=== PATIENT | female | born 1955 | race Caucasian/White ===

== ENCOUNTER → 2020-12-28 01:48 | Outpatient (CLI) | payer OTHER, SELFPAY ==
[2020-12-28 18:55] LABS: SARS-CoV-2 RNA PCR Negative
== END ==
PROVIDERS: Visit Provider Orthopaedic Surgery
DX: Z01.812 Encounter for preprocedural laboratory examination (principal); Z20.822 Contact with and (suspected) exposure to COVID-19
CPT/HCPCS: C9803; U0003; U0005

== ENCOUNTER 2020-12-28 11:01 | Outpatient (CLI) | payer OTHER, SELFPAY ==
--- NOTE | 2020-12-28 11:10 | ECG_ITS ---
Measurements Intervals [place] Rate: 59 P: 130 [place]: 260 QRS: 12 QRSD: 97 T: 4 QT: 389 QTc: 388 Interpretive Statements ELECTRONIC ATRIAL PACEMAKER DELAYED PRECORDIAL R/S TRANSITION LOW QRS VOLTAGE IN PRECORDIAL LEADS BORDERLINE T WAVE ABNORMALITY- ANT/INF LEADS BORDERLINE ECG Electronically Signed On 12-28-2020 11:30:16 CDT by Horace John D.O.
[2020-12-28 11:36] LABS: Anion Gap -2 mmol/L (8-16); Blood Urea Nitrogen 14 mg/dL (7-17); Carbon Dioxide 36 mmol/L (22-30); Chloride 104 mmol/L (98-107); Estimated Glomerular Filt Rate > 60; Glucose 198 mg/dL (65-105); Potassium 4.5 mmol/L (3.4-5.0); Sodium 138 mmol/L (137-145)
== END 2020-12-28 11:02 | disposition home or self-care (01) ==
LOC: ANHSURGERY 11:04
PROVIDERS: Anesthesiology; Visit Provider Orthopaedic Surgery
DX: E11.9 Type 2 diabetes mellitus without complications (principal); I10 Essential (primary) hypertension; R94.31 Abnormal electrocardiogram [ECG] [EKG]; Z01.818 Encounter for other preprocedural examination
CPT/HCPCS: 36415; 80048; 93005

== ENCOUNTER 2020-12-31 05:58 | Day surgery (SDC) | payer OTHER, SELFPAY ==
[2020-12-23 14:42] VITALS: BMI 29.2
--- NOTE | 2020-12-30 12:48 | WPDANESEPPF ---
Anes - Initial Pre Proc Eval Procedure: Operation Date: 12/31/20 09:00 Proposed Procedures p Arthroscopic Left Partial Lateral Meniscectomy - Rudolph Munoz MD Date/Time: 12/30/20 12:48 Surgeon: Rudolph Munoz MD Pre Op Diagnosis: lateral meniscus tear left knee Patient Data Age: 65 Gender: F Height: 1.68 m Weight: 82 kg Allergies Allergy/AdvReac Type Severity Reaction Status Date / Time Sulfa (Sulfonamide Allergy Unknown Rash Verified 12/31/20 08:03 Antibiotics) NSAIDS (Non-Steroidal AdvReac Unknown AVOIDING Verified 12/31/20 08:03 Anti-Inflamma AFTER GASTRIC BYPASS simvastatin AdvReac Unknown LEG PAINS Verified 12/31/20 08:03 Home Medications Medication Instructions Recorded Confirmed Type garlic 300 mg PO DAILY 12/10/20 12/31/20 History insulin admin supplies #1 ea 12/10/20 12/31/20 History lisinopril 20 mg tablet 20 mg PO QAM 12/10/20 12/31/20 History multivitamin 1 tablet PO DAILY 12/10/20 12/31/20 History pyridostigmine bromide 60 mg tablet 60 mg PO TID 12/10/20 12/31/20 History aspirin [Aspir-81] 81 mg PO DAILY 12/23/20 12/31/20 History kipvszrbfa-msypertdwhtof-hunc 1 tablet PO Q4-5H PRN 12/23/20 12/31/20 History calcium carbonate [Tums Ultra] 800 mg PO DAILY 12/23/20 12/31/20 History cholecalciferol (vitamin D3) 3,000 mcg PO DAILY 12/23/20 12/31/20 History hydrochlorothiazide 25 mg PO QAM 12/23/20 12/31/20 History insulin aspart U-100 [Novolog 16 unit CONTINUOUS IV INFUSION 12/23/20 12/31/20 History U-100 Insulin aspart] USEASDIRECTD Patient hx anesthesia problems: none Family hx anesthesia problems: none PMFSH Past Medical History Medical History (Updated 12/31/20 @ 08:01 by Gabriel Tiwari DO) Diabetes insulin pump History of pacemaker Hypertension Myasthenia gravis Surgical History Surgical History (Updated 12/30/20 @ 12:48 by Gabriel Tiwari DO) History of appendectomy History of bilateral carpal tunnel release History of bilateral cataract extraction History of cardiac cath X3 History of cholecystectomy History of gastric bypass 2014 History of hip surgery Labral repair Rt Hip History of hysterectomy History of meniscectomy of right knee History of thymectomy Family History Family History (Updated 12/10/20 @ 12:21 by Nikia Quarles MA) Father Hypertension Diabetes mellitus Mother Thyroid disease Sinus complaint Social History Social History (Updated 12/10/20 @ 12:21 by Nikia Quarles MA) Smoking packs per day: 1 Smoking cigarettes per day: 20.0 Years smoked: 4 Smoking pack-years: 4.00 Smoking status: Former smoker Tobacco type: cigarettes Smoking end date: 02/17/78 Alcohol intake: never Substance use: never Living arrangements: with family Additional living arrangements comments: [place] Spiritual care concerns: No Anes - Eval Final PreProcedure Day of Procedure 12/30/20 12:48 Patient weight: overweight Heart: regular rate and rhythm Lungs: clear to auscultation and normal air movement Airway: Mallampati scale class II Neurological: alert and oriented Last oral intake: >/= 8 hours ASA classification: III Emergent: no Anesthetic plan: proceed Anesthesia type and monitoring: general LMA and standard monitoring Informed Consent: The patient's anesthetic plan and its attendant risks and benefits were discussed with the patient/family/POA. Questions were solicited and answers provided to the satisfaction of the patient/family/POA.
[2020-12-31] VITALS (7 sets, daily range): BP systolic 133–154; BP diastolic 80–92; PULSE 59–61; RESP 12–18; TEMP 36.2–36.6; O2SAT 98–100
--- NOTE | 2020-12-31 07:25 | WPDHPUPDATE1 ---
History and Physical Update Update Date/Time: 12/31/20 07:25 History and Physical has been reviewed, including an updated exam of the patient. There are NO changes in the patient's condition. Risks, benefits, and alternatives have been discussed and questions answered. Patient agrees to proceed with procedure.
[2020-12-31] MEDS: KETOROLAC 15 MG/ML VIAL (*BKC) IV PUSH (07:36)
[2020-12-31] MEDS: ACETAMINOPHEN 500 MG TABLET 1000 MG PO (07:36)
[2020-12-31] MEDS: LACTATED RINGERS 1,000 ML 30 ML IV CONT ×2 (07:37→10:10)
[2020-12-31 07:42] LABS: Glucose Point of Care 174 (65-105)
[2020-12-31] MEDS: ceFAZolin 2 GM/D5W 50 ML 2 GM/50 ML BAG IVPB (08:51)
[2020-12-31] MEDS: BUPIVACAINE/EPINEPHRINE 0.5% 30 ML VIAL 20 ML INFILTRATE (09:04)
[2020-12-31] MEDS: ONDANSETRON INJ 4 MG/2 ML VIAL IV PUSH (09:50)
[2020-12-31 13:29] LABS: Glucose Point of Care 154 (65-105)
--- NOTE | 2020-12-31 16:10 | PM.PROC ---
Procedure Note - Detailed Date of procedure: 12/31/20 Pre-op diagnosis: lateral meniscus tear left knee Post-op diagnosis: same Procedure performed: Arthroscopic partial lateral meniscectomy, left knee. Description of procedure: The lateral meniscus showed complex tearing at the lateral and posterior aspect. Partial meniscectomy was accomplished. Grade 1 and 2 chondromalacia of the femur and tibia was encountered both medially and laterally. Significant fairly deep fissuring on the tibia with probing. Grade 1 patellofemoral chondromalacia. Anterior cruciate ligament intact. Anesthesia: GETA Surgeon: Rudolph Munoz MD Brand Marketing Intern: Rosaura Caballero PA-C Estimated blood loss (mL): 5 Complications: None Condition: stable Findings: Brief History: The patient complained of knee pain, swelling and mechanical symptoms despite conservative treatment. MRI confirmed the presence of a meniscus tear. Procedure Details: The patient was identified and the surgical site confirmed and signed in the preoperative holding area. Antibiotics were started per protocol. She was brought to the operative room and transferred to the OR table. A general anesthetic was administered. Supine position with the operative lower extremity position in the leg diaz after placement of a well padded tourniquet. The leg support was lowered and the contralateral limb was supported with a soft bolster. The knee was prepped and draped in the usual sterile fashion. A time-out was performed. The portal sites were marked and infiltrated with 0.5% Marcaine 20 mL. The limb was exsanguinated and the tourniquet inflated to 300 mL Hg. Standard inferolateral and inferomedial portals were established. Inflow was obtained with the saline pump. The camera was introduced. Diagnostic inspection of the joint was accomplished. The meniscus was debrided with the arthroscopic shaver and punches until stable. The arthroscopic instruments were removed. The tourniquet released and wounds closed with subcutaneous 3-0 Monocryl absorbable suture. Steri strips and a sterile dressing were applied. A light elastic wrap was placed. The patient was extubated and brought to the recovery room in stable condition.
== END 2020-12-31 11:27 | disposition home or self-care (01) ==
PROVIDERS: Visit Provider Orthopaedic Surgery
PROC: (CPT 29870; principal; 2020-12-31 09:00)
DX: S83.272A Complex tear of lateral meniscus, current injury, left knee, initial encounter (principal); X58.XXXA Exposure to other specified factors, initial encounter; M94.262 Chondromalacia, left knee; E11.9 Type 2 diabetes mellitus without complications; I10 Essential (primary) hypertension; G70.00 Myasthenia gravis without (acute) exacerbation; Z96.41 Presence of insulin pump (external) (internal); Z79.4 Long term (current) use of insulin; Z79.82 Long term (current) use of aspirin; Z98.84 Bariatric surgery status; Z87.891 Personal history of nicotine dependence
CPT/HCPCS: 29881; 82948; A9270; J0690; J1885; J2250; J2405; J2704; J3010; J7120

== ENCOUNTER 2024-04-02 12:37 | Outpatient (CLI) | payer MEDICARE, SELFPAY ==
--- NOTE | ~2024-04-02 | XR_ITS ---
XR knee RT min 4V Ordering provider: Rudolph Munoz MD History: . M17.0 - Bilateral primary osteoarthritis of knee . Comparison: None. FINDINGS: BONES: No acute fracture or dislocation. JOINT SPACES: Normal. SOFT TISSUES: Normal. IMPRESSION: No acute osseous abnormality right knee. Reviewed, dictated and finalized at location A.
--- NOTE | ~2024-04-02 | XR_ITS ---
XR knee LT min 4V Ordering provider: Rudolph Munoz MD History: . M17.0 - Bilateral primary osteoarthritis of knee . Comparison: December 10, 2020 FINDINGS: BONES: No acute fracture or dislocation. JOINT SPACES: Normal. SOFT TISSUES: Normal. IMPRESSION: No acute osseous abnormality left knee. Reviewed, dictated and finalized at location A.
== END 2024-04-02 12:38 | disposition home or self-care (01) ==
LOC: ANHIMG 12:42
PROVIDERS: PCP Family Medicine; Visit Provider Orthopaedic Surgery
DX: M17.0 Bilateral primary osteoarthritis of knee (principal)
CPT/HCPCS: 73564

== ENCOUNTER 2024-04-25 11:30 | Outpatient (CLI) | payer MEDICARE, SELFPAY ==
--- NOTE | ~2024-04-25 | XR_ITS ---
AP view of the pelvis and AP and lateral views of the right hip Clinical history: Pain Findings: No acute fracture or dislocation is seen. Osseous alignment is anatomic. Bilateral hip and SI joint spaces are preserved. Stent present in the region of the left iliac vessels. Soft tissues ar e unremarkable. Impression: No significant abnormality is seen. Reviewed, dictated and finalized at location . Impression: No significant abnormality is seen.
== END 2024-04-25 11:31 | disposition home or self-care (01) ==
LOC: ANHIMG 11:34
PROVIDERS: PCP Family Medicine; Visit Provider Orthopaedic Surgery
DX: M25.551 Pain in right hip (principal)
CPT/HCPCS: 73502

== ENCOUNTER 2024-04-30 14:23 | Outpatient (CLI) | payer MEDICARE, SELFPAY ==
[2024-04-30 15:03] LABS: Hematocrit 32.8 % (37.0-47.0); Hemoglobin 10.7 g/dL (12.0-15.0)
[2024-04-30 15:16] LABS: Albumin Level 3.9 g/dL (3.5-5.1); Estimated Glomerular Filt Rate > 60; Glucose 109 mg/dL (65-110)
[2024-04-30 15:25] LABS: Hemoglobin A1C 7.8 % (<5.7)
== END 2024-04-30 14:24 | disposition home or self-care (01) ==
LOC: ANHLAB 14:27
PROVIDERS: PCP Family Medicine; Visit Provider Orthopaedic Surgery
DX: M17.0 Bilateral primary osteoarthritis of knee (principal); E11.9 Type 2 diabetes mellitus without complications
CPT/HCPCS: 36415; 82040; 82565; 82947; 83036; 85014; 85018

== ENCOUNTER 2024-05-30 11:43 | Outpatient (CLI) | payer MEDICARE, SELFPAY ==
[2024-05-30 14:01] LABS: Basophils Percent Auto 0.7 % (0.2-1.2); Eosinophils Absolute Auto 0.1 K/mm3 (0-0.3); Eosinophils Percent Auto 2.6 % (0-4.4); Hematocrit 37.5 % (37.0-47.0); Immature Granulocyte Absolute 0.01 K/mm3 (0.00-0.031); Immature Granulocyte Percent A 0.2 % (0-0.5); Lymphocytes Absolute Auto 1.41 K/mm3 (0.9-3.2); Lymphocytes Percent Auto 26.1 % (18.3-44.2); Mean Corpuscular Hemoglobin 27.5 pg (26-34); Mean Corpuscular Volume 85.8 fl (80-100); Mean Platelet Volume 10.5 fl (7.4-10.4); Monocytes Absolute Auto 0.4 K/mm3 (0.1-0.6); Neutrophils Absolute Auto 3.4 K/mm3 (1.3-6.7); Neutrophils Percent Auto 63.4 % (45.5-73.1); Platelet Count Result 308 k/mm3 (150-375); Red Blood Count 4.37 M/mm3 (4.2-5.4); Red Cell Distribution Width 15.1 % (11.5-14.5); White Blood Count 5.4 K/mm3 (4.5-10.0)
[2024-05-30 14:10] LABS: Urine Cotinine NEGATIVE
[2024-05-30 15:08] LABS: Anion Gap 5 mmol/L (4-12); Blood Urea Nitrogen 25 mg/dL (7-17); Calcium 9.6 mg/dL (8.4-10.2); Carbon Dioxide 33 mmol/L (22-30); Chloride 98 mmol/L (98-107); Estimated Glomerular Filt Rate > 60; Glucose 123 mg/dL (65-110); Potassium 3.8 mmol/L (3.4-5.0); Sodium 136 mmol/L (137-145)
[2024-05-30 15:22] LABS: MRSA (PCR) NOT DETECTED (NOT DETECTE)
== END 2024-05-30 11:44 | disposition home or self-care (01) ==
LOC: ANHSURGERY 11:48
PROVIDERS: Anesthesiology; PCP Family Medicine; Visit Provider Orthopaedic Surgery
DX: M17.12 Unilateral primary osteoarthritis, left knee (principal); E11.9 Type 2 diabetes mellitus without complications; Z01.818 Encounter for other preprocedural examination
CPT/HCPCS: 36415; 80048; 80307; 85025; 87641

== ENCOUNTER 2024-06-17 02:51 | Day surgery (SDC) | payer MEDICARE, SELFPAY ==
[2024-05-30 12:19] VITALS: BP 132/78; PULSE 60; RESP 16; TEMP 36.8; O2SAT 99; BMI 30.9
--- NOTE | 2024-05-30 12:48 | PC.NURSE ---
Report to the Outpatient Waiting Room, entrance under the green pavilion located off [facility], at time __10:30AM on date ___06/17/24____. Planned Procedure Time: ____12:30PM____.? Time changes happen often and if your time is changed the preop area will call you the afternoon before. - You and your visitor will be asked to self-screen and do not enter if you have any COVID symptoms. Please call surgeon if you need to reschedule. - A mask is optional within the hospital at this time. Patients may have clear liquids (water, carbonated beverages, clear teas, apple juice) until 3 hours prior to surgery with a maximum of 20 ounces. - No food from midnight until time of surgery and no smoking. Take only the following medications with a SIP of water on the morning of surgery: ____PYRIDOSTIGMINE DO NOT STOP ANY OF YOUR OTHER PRESCRIPTION MEDICATIONS PRIOR TO SURGERY EXCEPT THE FOLLOWING Medications to discontinue per physician ____HOLD ASPIRIN 7 DAYS PRE-OP PER DR MCPHERSON- LAST DOSE 06/09/24. HOLD ALL VITAMINS/SUPPLEMENTS 3 DAYS PRE-OP PER ANESTHESIA- LAST DOSE 06/13/24. Please no make-up, nail lebanese, hairspray, perfume, deodorant, or body powder the day of surgery.? No jewelry (including any body piercings) or valuables the day of surgery, leave them at home.? Please take a shower or bath the night before, or the morning of, surgery with an antibacterial soap.? Wear comfortable, loose fitting clothing.? Children are encouraged to wear pajamas. - Jewelry must be removed prior to entering the operating room.? Rings and piercings that are not removed may be cut off. - The hospital will not accept responsibility for valuables.? - Please leave all valuables, including medications, at home the day of surgery. If you are going home after surgery, a licensed driver starting gate must drive you home.? - NO public transportation without another adult if you receive anesthesia. - We recommend that an adult stay with you for 24 hours following discharge. - We also recommend that you do not drive, make important decision, drink alcoholic beverages, or take any drugs that were not prescribed by your health care provider for at least 24 hours after your discharge time. Follow any additional instructions given to you from your surgeon. Telephone instructions given to ____PATIENT and asked if any additional questions and then verbalized understanding. Patient advised to call surgeon office or pre surgery nurse liaison [phone] if any additional questions.
[2024-06-17] VITALS (9 sets, daily range): BP systolic 104–167; BP diastolic 72–91; PULSE 59–73; RESP 10–20; TEMP 36.4–36.6; O2SAT 96–100
--- NOTE | ~2024-06-17 | XR_ITS ---
EXAM: [id number] DATE: 06/17/2024 16:07 HISTORY: POST-OP, LEFT TKA . COMPARISON: 04/02/2024. FINDINGS: Decreased mineralization. Interval uncomplicated appearing left knee total arthroplasty. N o fracture or dislocation. No lytic or blastic lesion. No erosion or periosteal change. Gas and fluid within the joint space. IMPRESSION: Expected postsurgical changes, with no radiographic evidence of procedure or hardware rel ated complication. Reviewed, dictated and finalized at location K. IMPRESSION: Expected postsurgical changes, with no radiographic evidence of pro cedure or hardware related complication.
--- NOTE | 2024-06-17 07:13 | WPDHPUPDATE1 ---
History and Physical Update Update Date/Time: 06/17/24 07:13 History and Physical has been reviewed, including an updated exam of the patient. There are NO changes in the patient's condition. Risks, benefits, and alternatives have been discussed and questions answered. Patient agrees to proceed with procedure.
[2024-06-17 11:15] LABS: Glucose Point of Care 123 mg/dl (65-105)
[2024-06-17] MEDS: ACETAMINOPHEN 500 MG TABLET 1000 MG PO (11:30)
[2024-06-17] MEDS: TRANEXAMIC ACID 1,000MG/ISO100 1,000 MG/100 ML BAG 200 MG IVPB (11:30)
--- NOTE | 2024-06-17 13:01 | WPDANESEPPF ---
Anes - Initial Pre Proc Eval Procedure: Operation Date: 06/17/24 12:30 Proposed Procedures p Left Total Knee Arthroplasty - Rudolph Munoz MD Date/Time: 06/17/24 13:01 Surgeon: Rudolph Munoz MD Pre Op Diagnosis: primary OA left knee Patient Data Age: 68 Gender: F Height: 1.68 m Weight: 88.6 kg Last Vital Signs Temp 36.4 C 06/17/24 11:23 Pulse 59 L 06/17/24 11:23 Resp 16 06/17/24 11:23 BP 142/79 H 06/17/24 11:23 Pulse Ox 99 06/17/24 11:23 O2 Del Method Room Air 06/17/24 11:23 Allergies Allergy/AdvReac Type Severity Reaction Status Date / Time Sulfa (Sulfonamide Allergy Unknown Rash Verified 06/17/24 11:20 Antibiotics) NSAIDS (Non-Steroidal AdvReac Unknown AVOIDING Verified 06/17/24 11:20 Anti-Inflamma AFTER GASTRIC BYPASS simvastatin AdvReac Unknown LEG PAINS Verified 06/17/24 11:20 Home Medications Medication Instructions Recorded Confirmed Type insulin admin supplies (InPen (for #1 ea 12/10/20 05/30/24 History Novolog or Fiasp) subcutaneous) multivitamin 1 tablet PO DAILY 12/10/20 06/17/24 History pyridostigmine bromide 60 mg 60 mg PO TID 12/10/20 06/17/24 History tablet (Mestinon) aspirin 81 mg tablet,delayed 81 mg PO DAILY 12/23/20 06/17/24 History release yttknuybnb-peainsibszdnk-fbdvogyu 1 tablet PO Q4-5H PRN Headache 12/23/20 05/30/24 History 50 mg-325 mg-40 mg tablet cholecalciferol (vitamin D3) 25 3,000 mcg PO DAILY 12/23/20 06/17/24 History mcg (1,000 unit) capsule furosemide 20 mg tablet (Lasix) 20 mg PO 3XW PRN Edema 04/20/21 06/17/24 History hydrochlorothiazide 25 mg tablet 25 mg PO QAM 12/01/21 06/17/24 History insulin aspart U-100 100 unit/mL 40 - 60 unit continuous IV 12/01/21 05/30/24 History subcutaneous solution (Novolog infusion USEASDIRECTD U-100 Insulin aspart) acetaminophen 500 mg tablet 1,000 mg PO Q6H PRN Pain 11/30/22 05/30/24 History (Tylenol Extra Strength) ezetimibe 10 mg tablet (Zetia) 10 mg PO DAILY 11/30/22 06/17/24 History sennosides 8.6 mg-docusate sodium 1 - 2 tab-cap PO QAM 11/30/22 05/30/24 History 50 mg tablet (Senna-S) lisinopril 2.5 mg tablet 2.5 mg PO DAILY PRN Hypertension 04/02/24 05/30/24 History calcium carbonate (Tums Extra 300 mg PO QAM 05/30/24 05/30/24 History Strength Smoothies) ferrous sulfate 325 mg (65 mg 325 mg PO DAILY 05/30/24 06/17/24 History iron) capsule,extended release lisinopril 5 mg tablet 10 mg PO QAM 05/30/24 06/17/24 History aspirin 81 mg tablet,delayed 81 mg PO BID 14 days #28 tabs 06/17/24 Rx release oxycodone-acetaminophen 5 mg-325 1 - 2 tablet PO Q4-6H PRN pain 7 06/17/24 Rx mg tablet days #30 tabs prednisone 5 mg tablet 5 mg PO DAILY 3 weeks #21 tabs 06/17/24 Rx Laboratory Tests 06/17/24 06/17/24 11:05 11:09 POC Capillary Glucose 123 H mg/dl (65-105) Blood Type O Positive Antibody Screen Negative Patient hx anesthesia problems: none Family hx anesthesia problems: none Results Review: All pre-operative results and documents have been reviewed as part of the pre-operative evaluation. [facility]LY [facility] Past Medical History Medical History Diabetes insulin pump History of pacemaker Hypertension Myasthenia gravis Surgical History Surgical History History of appendectomy History of bilateral carpal tunnel release History of bilateral cataract extraction History of cardiac cath X3 History of cholecystectomy History of gastric bypass 2014 History of hip surgery Labral repair Rt Hip History of hysterectomy History of meniscectomy of right knee History of thymectomy Family History Family History Father Hypertension Diabetes mellitus Mother Thyroid disease Sinus complaint Social History Social History Smoking packs per day: 0.75 Smoking cigarettes per day: 15.0 Years smoked: 2.5 Smoking pack-years: 1.88 Smoking status: Former smoker Tobacco type: cigarettes Smoking end date: 02/17/78 Alcohol intake: never Substance use: never Lack of Transportation: No Lack of Food: Never True Current Housing: I Have Housing Concerned About Future Housing: No Difficulty Paying Gas/Electric Bills: No Difficulty Paying for Meds: No Currently Unemployed: No Education: Associate Degree Difficulty w/ Childcare or Family Care: No Living arrangements: with family Additional living arrangements comments: HUSB & GRANDDAUGHTER Spiritual care concerns: No Anes - Eval Final PreProcedure Day of Procedure 06/17/24 13:01 Patient weight: overweight Heart: regular rate and rhythm Lungs: clear to auscultation Airway: Mallampati scale class II Neurological: alert and oriented Last oral intake: >/= 8 hours ASA classification: III Emergent: no Anesthetic plan: proceed Anesthesia type and monitoring: general LMA and standard monitoring Results Review: All pre-operative results and documents have been reviewed as part of the pre-operative evaluation. Informed Consent: The patient's anesthetic plan and its attendant risks and benefits were discussed with the patient/family/POA. Questions were solicited and answers provided to the satisfaction of the patient/family/POA.
[2024-06-17] MEDS: ceFAZolin 2 GM/D5W 50 ML 2 GM/50 ML BAG IVPB (13:09)
[2024-06-17] MEDS: SODIUM CHLORIDE 0.9% IV 38.7 ML, MORPHINE SULFATE INJ (*CRX) 2 MG, ROPivacaine HCL 1% 2... INFILTRATE (13:36)
[2024-06-17] MEDS: TRANEXAMIC ACID 1,000 MG/10 ML AMPUL 1000 MG IV PUSH (15:03)
--- NOTE | 2024-06-17 15:30 | P.OP_ITS ---
Procedure Note - Detailed Date of Procedure 06/17/24 Pre-op Diagnosis Left knee degenerative arthritis. Post-op Diagnosis Same Procedure Performed Calipered, kinematically aligned total knee replacement left knee. Surgeon Rudolph Munoz MD Doorperson Rosaura Guevara PA-C Anesthesia General Findings According to the calipered kinematic alignment principles, the knee was balanced by the following verification checks incorporating 6 caliper measurements, using an insert goniometer to select the insert thickness, and adjusting the tibial resection following the kinematic alignment algorithm (see figure 160.10 published in [employer] Wilfred[facility] chapter on kinematic alignment total knee a rthroplasty.) The steps verified the femoral and tibial components were kinematically aligned coincident to the patient's pre arthritic joint lines, which closely restored the point hope ira tibial compartment forces and ligament laxities without ligament release. The [employer] Tiangua OnlineriKA knee, designed specifically for kinematic alignment, fit optimally. The record of verification checks were documented and scanned into the chart. Distal Femoral Resection: Distal Medial and Lateral 8 mm Target thickness of 8mm Unworn, 6mm Worn (No Cartilage). Posterior Femoral Resection: Posterior Medial 5 mm(cartilage worn), Posterior Lateral 7 mm. Target thickness of 7mm Unworn, 5mm Worn (No Cartilage). Description of Procedure General anesthesia was administered. A well-padded tourniquet was placed high on the thigh. The limb was prepped and draped in the usual sterile fashion. The limb was exsanguinated and the tourniquet inflated to 300 mmHg. A longitudinal incision was created over the midline of the knee. Sharp dissection was taken through subcutaneous tissues. Electrocautery was used for hemostasis. A trivector approach to the knee joint was performed. The ACL, anterior horns of the menisci, and fat pad were excised, and a subperiosteal dissection was carried along the posterior medial border of the tibia. The thickness of the point hope ira patella was measured with a caliper. The patella was resected using the oscillating saw. The best fitting anatomic patella button was selected. The fixation holes were drilled. When the patella and patella buttons combined thickness was thicker than the point hope ira patella, the patella was recut. Starting midway between the top of the notch in the anterior femoral cortex, I drilled a 9 mm diameter hole parallel to the anterior cortex to minimize flexion of the femoral component and promote patella tracking. I verified the existence of a 5-10 mm bone bridge between the posterior aspect of the hole and the anterior limit of the intercondylar notch. An intraosseous positioning robyn was inserted 10 cm into the femur perpendicular to the distal joint line and parallel to the anterior cortex. I used a distal femoral referencing guide that compensated 2 mm when the cartilage was worn on the distal medial femoral condyle, and 2 mm when the cartilage was worn on the distal lateral femoral condyle. The basis for setting the distal and posterior femoral resection guide is knowing that the varus and valgus grade II to IV Kellegren-Nick osteoarthritic knees have negligible bone wear at 0? and 90? and that the mean full-thickness cartilage wear approximates 2 mm. I measured the thickness of distal femoral resections with a caliper to +/- 0.5 mm. The thickness of each resection was adjusted to match the thickness of the respective condyle of the femoral component within 0.5 mm of target after compensating for cartilage wear and kerf. When the distal resection was 1-2 mm too thin, a recut guide was used to adjust the cut. When the distal resection was too thick, a 1 or 2 mm thick washer was fixed to the back of the 4-in-1 chamfer block to sotero a corrective gap between the femoral component and distal femur. I set posterior femoral referencing guide at 0? orientation to position the pin holes for the 4 in 1 chamfer block. The alesha wing measured the width of the distal femoral resection and selected the size of the 4 in 1 chamfer block and femoral component. The AP sizer confirmed the size. I measured the thickness of the posterior femoral resections with a caliper before making the anterior and chamfer cuts. I adjusted the thicknesses of each resection to match the thickness of the respective condyle of the femoral component within +/-0.5 mm after compensating for cartilage wear and curve. When a posterior resection femoral resection was 1-2 mm too thick or thin a corrective correction was made by shifting or rotating the 4 in 1 chamfer block as needed. The chamfer block was secured in the correct position with compression screws. The anterior and chamfer femoral resections were made. These caliper measurements and corrections verified that the femoral component was set coincident with the patient's pre-arthritic distal and posterior femoral joint lines. I removed all the medial and lateral femoral and tibial osteophytes to restore the pre arthritic length of the medial and lateral collateral ligaments. I alfreda AP lines along the major axis of the lateral tibial plateau in between the tibial spines which identified the flexion extension plane of the knee. A conventional extramedullary tibial resection guide was applied to the ankle. An alesha wing was placed medially in the saw slot. The varus valgus angle of the tibial resection guide was adjusted until the guide paralleled the proximal tibial articular surface after compensating for cartilage and bone wear. The slope of flexion extension angle of the tibial resection guide was adjusted until the alesha wing paralleled the slope of the medial tibia after compensating for wear. The AP axis of the tibial resection guide was adjusted parallel to the two lines. The proximal tibia was resected, partially releasing the insertion of the posterior cruciate ligament. The thickness of the medial and lateral lateral tibial condyle was measured at the base of the tibial spines. I visually verified the slope of the medial border of the resection was parallel to the patient's pre arthritic slope after compensating for cartilage and bone wear. I removed the remnants of the posterior horns of the menisci and posterior osteophytes and cauterized the inferior lateral genicular vessels. The Aquamantys bipolar device was also used to for additional hemostasis. When the knee had a preoperative flexion contracture of 20? or more I teased the capsule off the posterior femur with a curved 3 quarter-inch osteotome. I administered the posterior femoral periosteal injection by delivering 10 cc using a 20 gauge spinal needle at the most medial and 10 cc at the most lateral femoral spur surface which reduced the risk of injury to the posterior neurovascular structures. I followed 6 options in a decision tree to fine tune the varus valgus and posterior slope orientation of the tibial component to restore the patient's pre arthritic tibial joint line and limb alignment. First, I adjusted the varus- valgus orientation of the proximal tibia resection working in 1 degree to 2 degree increments until there was negligible medial and lateral lift off of the distal femoral and proximal tibial resection from the spacer block during a varus valgus laxity assessment in extension. I selected the largest anatomic shape trial tibial base plate that fit within the cortical boundary of the proximal tibial resection. The base plate was best fit parallel to the cortical boundary which set the Internal-external orientation of the anterior to posterior and medial to lateral positions. The best fit method set the AP axis of the tibial base plate and insert parallel to the flexion extension plane of the pre arthritic knee. I pinned the trial tibial base plate, prepared the cruciate slot, and fixed the base plate to the tibia with the cruciate stem. I inserted the trial femoral component. The knee was placed in full extension. Varus valgus laxity is of the knee with trial components were assessed. When asymmetric laxity was observed a 1-2 degree varus or valgus recut guide was used to fine tune the tibial resection until the laxity was 1 degree or less in full extension like the point hope ira knee. The following steps determined the optimal insert thickness within +/-1 mm. First I inserted an insert goniometer that matched the thickness of the spacer block. I reduced the patella and then with the knee in maximum extension, I verified the knee hyperextended a few degrees and had negligible varus valgus laxity, like the pre arthritic knee. He required a release of the posterior lateral capsule. Next, I measured the external tibial orientation which was the angle the insert goniometer intersected the sagittal line on the medial condyle of the femoral trial component. Then with the knee in 15-30 degrees flexion I verified a 3-4 mm gap in the lateral compartment and no gap in the medial compartment during a 2nd varus valgus laxity test. Next, I placed the knee in 90? of flexion and the foot resting on the operating table and measured the internal tibial orientation. I repeated the steps until I identified the insert thickness that provided the highest external tibia orientation in extension and the highest internal tibial orientation at 90? flexion without anterior lift-off of the insert from the tibial base plate. The insert with this thickness was implanted. I applied a posterior drawer test with the tibia distracted by gravity and verified no posterior subluxation of the tibia relative to the femur. The patella remained centered on the trochlea and tracked well throughout the entire arc of flexion and extension. I used pulse lavage to clean the bony surfaces of debris and dried bone. I cemented the tibial, femoral, and patellar components using 1 bag of methylmethacrylate with Gentamycin, then rechecked the stability at full extension, 15-30 degrees, and 90? flexion and verified presybeterian of the entire arc of motion of the knee. The circulating nurse confirmed the sponge and needle counts were correct. I used pulse lavage to rinse the joint and wound. The extensor mechanism was closed with interrupted #1 Vicryl suture and #1 running Stratafix suture. The subcutaneous layer was closed with interrupted #1 Vicryl suture followed by 2-0 Stratafix and 3-0 Stratafix. Steri-Strips placed on the skin. Silver im pregnated occlusive dressing applied to the wound. A light gauze wrap and Michael bandage were placed. The patient was transferred to the recovery room in stable condition. There were no complications. Implants Medacta GMK spheriKA Femoral component SpheriKA size 3+, tibial component size 3, vitamin-E flex insert, thickness 11mm, Anatomic patella implant size 2. Estimated Blood Loss 50 Drains No Pathology None sent Complications No immediate complications Condition Stable Disposition PACU [facility] Billing Surgery - Charge Forward: Surgery Billing
[2024-06-17] MEDS: LACTATED RINGERS 1,000 ML 30 ML IV CONT ×2 (15:43)
[2024-06-17 15:51] LABS: Glucose Point of Care 159 mg/dl (65-105)
--- NOTE | 2024-06-17 16:16 | SUR.PHASEI ---
1616: Simple mask removed.
[2024-06-17] MEDS: oxyCODONE HCL (*CRX) 5 MG TAB IR PO (16:54)
[2024-06-17] MEDS: ONDANSETRON INJ 4 MG/2 ML VIAL IV PUSH (16:54)
== END 2024-06-17 18:22 | disposition home or self-care (01) ==
PROVIDERS: PCP Family Medicine; Visit Provider Orthopaedic Surgery
PROC: (CPT 27447; principal; 2024-06-17 12:30)
DX: M17.12 Unilateral primary osteoarthritis, left knee (principal); M25.762 Osteophyte, left knee; I10 Essential (primary) hypertension; E11.9 Type 2 diabetes mellitus without complications; G70.00 Myasthenia gravis without (acute) exacerbation; Z79.4 Long term (current) use of insulin; Z79.82 Long term (current) use of aspirin; Z79.891 Long term (current) use of opiate analgesic; Z79.52 Long term (current) use of systemic steroids; Z98.890 Other specified postprocedural states; Z95.0 Presence of cardiac pacemaker; Z96.41 Presence of insulin pump (external) (internal); Z98.61 Coronary angioplasty status; Z90.49 Acquired absence of other specified parts of digestive tract; Z98.84 Bariatric surgery status; Z87.891 Personal history of nicotine dependence
CPT/HCPCS: 27447; 36415; 73560; 82948; 86850; 86900; 86901; 97110; 97161; 97165; C1776; A9270; C1713; J0171; J0690; J1100; J2003; J2250; J2270; J2405; J2704; J2795; J3010; J7030; J7120

== ENCOUNTER 2024-08-06 13:43 | Outpatient (CLI) | payer MEDICARE, SELFPAY ==
--- NOTE | ~2024-08-06 | XR_ITS ---
XR knee LT 3V Ordering provider: Rudolph Munoz MD History: . PRESENCE OF L KNEE JOINT; 7 wks post op . Comparison: None. FINDINGS: BONES: No acute fracture or dislocation. Bone island in the distal femur. JOINT SPACES: Total knee arthroplasty. SOFT TISSUES: Normal. IMPRESSION: No acute osseous abnormality left knee. Total knee arthroplasty. Reviewed, dictated and finalized at location A. HER FLESHER
== END 2024-08-06 13:44 | disposition home or self-care (01) ==
PROVIDERS: PCP Family Medicine; Visit Provider Orthopaedic Surgery
DX: Z96.652 Presence of left artificial knee joint (principal)
CPT/HCPCS: 73562

== ENCOUNTER 2025-02-18 13:29 | Outpatient (CLI) | payer MEDICARE, SELFPAY ==
--- OUTSIDE RECORDS SUMMARY | 2025-02-18 13:39 | XMS_ITS | Clinical Summary ---
Author Organization [facility] Address [address] [place] [address] Care Team Providers Care Bomb Squad Officer Name Role Phone Bry Denny MD Primary Care Provider [phone] Social History Tobacco Use Types Packs/Day Years Used Date Smoking Tobacco: Never Assessed Comments Unknown Sex and Gender Information Value Date Recorded Sex Assigned at Not on file Legal Sex Female 12:26 PM CDT Gender Identity Not on file Sexual Orientation Not on file Plan of Treatment Health Maintenance Due Date Last Done Comments Colorectal Cancer Screening Colonoscopy (10 Years) 1955 Hepatitis C 11/26/1975 Mammogram Screening 1997 Pneumococcal Vaccine: 50+ Years (1 of 1 - PCV) 11/26/2007 Zoster Vaccines (1 of 2) 11/26/2007 Dexa Scan (General) 2022 DTaP, Tdap and Td Vaccines ( 2 - Td or Tdap) 07/07/2023 07/07/2013, 02/10/1993 COVID-19 Vaccine (3 - 2023-2 5 season) 2024 09/11/2020, 08/21/2020 RSV Immunization or 60+ Years (1 - 1-dose 75+ series) 2032 Meningococcal B Vaccine Aged Out No l onger eligible based on patient's age to complete this topic Meningococcal Vaccine Aged Out No kandi concepcion eligible based on patient's age to complete this topic RSV Immunizations Under 20 Months Aged Out No longer eligible b ased on patient's age to complete this topic Medical Devices Implanted Type Area Ecotherapist Device Identifier Shelf Expiration Date Model / Serial / Lot Lead-03/25/2020 Implanted:Qty: 1 on 03/25/2020 by Evita Ordonez MD Lead Implant [employer] CARDIAC RHYTHM AND HEART FAILURE - [facility] M [id number] / / Lead-03/25/2020 Implanted:Qty: 1 on 03/25/2020 by Evita Ordonez MD Lead Implant [employer] CARDIAC RHYTHM AND HEART FAILURE - [facility] M [id number] / / Pacemaker- 020 Implanted:Qty: 1 on 03/25/2020 by Evita Ordonez MD Pacemaker Chest [employer] CARDIAC RHYTHM AND HEART FAILURE - [facility] [id number] / [id number] / Description:MRI Conditional under following conditions: Static magnetic field of 1.5 T or 3 T, Max spatial gradient field of 2000 Gauss/cm or less, Max slew rate 200 T/m/s, 1.5 T max whole body JASKARAN of 2 W/kg or less in Normal operating mode, Had JASKARAN 3.2 W/kg or less, 3T B1+JUDD must be 2.8 mT or less when isocenter is below C&, No 3T B1+JUDD restriction when isocenter at or above C7, Supine or Prone Insurance [employer] OPEN ACCESS [facility] Care Teams Bomb Squad Officer Relationship Specialty Start Date End Date Bry Denny MD PCP - General FAMILY PRACTICE 11/18/20
--- OUTSIDE RECORDS SUMMARY | 2025-02-18 13:39 | XMS_ITS | Clinical Summary ---
Author Organization [facility] Address [address] [place] [address] Care Team Providers Care Podiatrist Name Role Phone Bry Denny MD Primary Care Provider [phone] Source Comments [facility],non-owned Affiliates and Associated Physician Practices is amultiple site organization consisting of ambulatory clinics and hospital sitesin [place], [place], [place] and [place]. This disclosure is being madepursuant to the Care Everywhere program and may not contain all information available regarding this patient. Last updated 18.[facility] [employer] Allergies Active Allergy Reactions Criticality Noted Date Comments Nsaids 01/04/2015 GASTRIC BYPASS SURGERY. CANT TAKE ANYMORE Simvastatin Other Medium 02/11/2018 Muscle aches Sulfa Drugs Rash Low 11/10/2011 Topiramate Other Low 09/07/2020 Confusion; word-finding problems Medications * Be aware that medications may not be up to date on this document. Alwaysverify current medications with the patient. multivitamin daily (THERAGRAN) tabletIndicatio ns:taking gummies cant swallow pills Take 1 (one) tablet by mouth daily with food Reasons: taking gummies cant swallow pills Active vitamin D (CHOLECACIFEROL ) 5000 UNITS Take 3,000 Units by mouth once daily Active aspirin (ASPIRIN) 81 MG tablet Take 1 (one) tablet by mouth once daily Active insulin aspart (NOVOLOG) vial Use as directed with Insulin Pump - Max 60/day 02/12/2018 Active sennosides (Ex-Lax Maxium Strength) 25 MG tablet Take 1 (one) tablet by mouth as needed Active lisinopril (PRINIVIL;ZESTR IL) 5 MG tablet 4 (four) tablets 2 times daily 09/04/2020 Active BAQSIMI ONE PACK 3 MG/DOSE POWD 09/04/2020 Active acetaminophen (TYLENOL) 325 MG tablet Take 500 mg by mouth Active calcium carbonate (Tums) 500 MG chew tablet Take 2 (two) tablets by mouth daily with food Active furosemide (LASIX) 20 MG tablet Take 1 (one) tablet by mouth once daily 03/18/2021 Active diclofenac sodium (VOLTAREN) 1 % gel Apply 2 (two) g to affected area 4 times daily Active ezetimibe (Zetia) 10 MG tablet Take 1 (one) tablet by mouth once daily 08/15/2022 Active butalbital-acet aminophen-caffe ine (Fioricet) 50-325-40 MG tablet TAKE 1 TABLET BY MOUTH EVERY 4 HOURS NEEDED FOR HEADACHE OR MIGRAINE 30 tablet 03/26/2023 Active hydroCHLOROthia zide (Hydrodiuril) 25 MG tablet Take 1 (one) tablet by mouth once daily 06/16/2023 Active pyRIDostigmine (Mestinon) 60 MG tablet Take 1 (one) tablet by mouth 3 times daily 270 tablet 3 09/26/2023 Active Active Problems Problem Noted Date Diagnosed Date Myasthenia gravis status post thymectomy 020 Myasthenia gravis 09/02/2018 Chronic headaches 01/04/2015 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 Encounters Date Type Department Care Team Description 02/18/2025 8:42 AM CDT Hospital Encounter Infusion Services at [facility] [id number] [place] [address] Harjinder Reece MD 01/07/2025 9:00 AM CDT - 01/07/2025 11:59 PM CDT Hospital Encounter Infusion Services at [place] [address] [facility] [address] [place] [address] Harjinder Reece MD Discharge Disposition: Home or Self Care 01/07/2025 Orders Only [facility] [address] [place] [address] Harjinder Reece MD 01/05/2025 Orders Only [facility] [address] [facility] [address] [place] [address] Harjinder Reece MD 11/26/2024 9:00 AM CDT - 11/26/2024 11:59 PM CDT Hospital Encounter Infusion Services at [address] [place] [address] Harjinder Reece MD Discharge Disposition: Home or Self Care from Last 3 Months Social History Tobacco Use Types Packs/Day Years Used Date Smoking Tobacco: Former Cigarettes Q uit: 06/13/1970 Smokeless Tobacco: Never Tobacco Cessation:Counseling Given: Not Answered Alcohol Use Standard Drinks/Week Comments Yes 0 (1 standard drink = 0.6 oz pur e alcohol) very rarely PHQ-2 Answer Date Recorded Patient Health Questionnaire-2 Score 0 02/18/2025 Comments No Sex and Gender Information Value Date Recorded Sex Assigned at Not on file Legal Sex Female 11:57 AM 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 Gender Identity Not on file Sexual Orientation Not on file Last Filed Vital Signs Vital Sign Reading Time Taken Comments Blood Pressure 100/63 02/18/2025 10:36 AM CDT Pulse 60 02/18/2025 10:36 AM CDT Temperature 36.6 C (97.9 F) 02/18/2025 10:36 AM CDT Respiratory Rate 16 02/18/2025 10:36 AM CDT Oxygen Saturation 98% 02/18/2025 10:36 AM CDT Inhaled Oxygen Concentration - - Weight 87.1 kg (192 lb) 02/18/2025 8:53 AM CDT Height 170.2 cm (5' 7.01) 11/26/2024 9:04 AM CD T Body Mass Index 30.06 11/26/2024 9:04 AM CDT Plan of Treatment Upcoming Encounters Date Type Department Care Team (Late st Contact Info) Description 02/23/2025 10:20 AM CDT Office Visit [facility] [address] [phone] [place] [address] [phone] 04/01/2025 8:30 AM CDT Appointment Infusion Services at [facility] [address] [place] [address] [place] [address] [address] Health Maintenance Due Date Last Done Comments COLOGUARD (AGES 45-75) - COLON CA SCREENING 1955 CT COLONOGRAPHY - COLON CA SCREENING 1955 FLEX SIG - COLON CA SCREENING 1955 HEPATITIS C SCREENING 11/21/1975 DTAP/TDAP/TD VACCINES (1 - Tdap) 1976 PNEUMOCOCCAL VACCINE 50+ (1 of 1 - PCV) 11/26/2007 ZOSTER VACCINE (1 of 2) 11/26/2007 FIT - COLON CA SCREENING 06/14/2023 022, 04/26/2021, 04/19/2020, Additional history exists COVID-19 VACCINE ( - season) 2024 MEDICARE AWV CALENDAR YEAR 2024 INFLUENZA VACCINE (#1) 2025 , 05/22/2018, 05/24/2016, Additional history exists MAMMOGRAM 01/02/2027 01/02/2025, 12/18, 10/25/2023, Additional history exists SCREENING FOR DIABETES 02/03/2028 , 11/10/2024, 11/10/2024, Additional history exists LIPID TESTING 02/02/2030 02/02/2025, 10/19, 07/21/2024, Additional history exists Respiratory Syncytial Virus (RSV) Vaccine Pt: or over 60 yrs (1 - 1-dose 75+ series) 2032 COLON MONITORING 02/06/2034 02/07/2024, 12/26/2018 COLONOSCOPY - COLON CA SCREENING 02/06/2034 02/07/2024, 12/26/2018 Colorectal Cancer Screening 02/06/2034 BONE DENSITY TESTING Completed 07/27/2022 DEPRESSION SCREENING Completed 10/15/2024, 09/20/2023, 11/30/2022, Additional history exists HEPATITIS B VACCINE Aged Out No longe r eligible based on patient's age to complete this topic HIB VACCINE Aged Out No longer eligi ble based on patient's age to complete this topic HPV VACCINE Aged Out No longer eligi ble based on patient's age to complete this topic MENINGOCOCCAL (Group B) VACCINE SHARED DECISION-MAKING Aged Out No longer eligible based on patient's age to complete this topic MENINGOCOCCAL GROUPS A/C/Y/W VACCINE Aged Out No longer eligible based on patient's age to complete this topic Procedures Procedure Name Priority Date/Time Associated Diagnosis Comments COMPREHENSIVE METABOLIC PANEL Routine 07/24/2023 10:27 AM 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 OPERATOR Myasthenia gravis status post thymectomy from Last 3 Months or Most Recently Relevant to Health Maintenance Results * (ABNORMAL) COMPREHENSIVE METABOLIC PANEL (07/24/2023 10:27 AM 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 OPERATOR) Glucose 158(H) 65 - 99 mg/dL [facility] Comment: Fasting reference interval For someone without known diabetes, a glucose value >125 mg/dL indicates that they may have diabetes and this should be confirmed with a follow-up test. BUN 22 7 - 25 mg/dL [facility] Creatinine 0.73 0.50 - 1.05 mg/dL [facility] eGFR by Cystatin C 91 > OR = 60 mL/min/1. 73m2 [facility] BUN/Creatinine Ratio SEE NOTE: 6 - 22 (calc) [facility] Comment: Not Reported: BUN and Creatinine are within reference range. Sodium 138 135 - 146 mmol/L [facility] Potassium 3.7 3.5 - 5.3 mmol/L [facility] Chloride 100 98 - 110 mmol/L [facility] CO2 32 20 - 32 mmol/L [facility] Calcium 9.5 8.6 - 10.4 mg/dL [facility] Protein Total 7.0 6.1 - 8.1 g/dL [facility] Albumin 4.1 3.6 - 5.1 g/dL [facility] Globulin Total 2.9 1.9 - 3.7 g/dL (calc) [facility] Albumin/Globulin Ratio 1.4 1.0 - 2.5 (calc) [facility] Bilirubin Total 0.5 0.2 - 1.2 mg/dL [facility] Alkaline Phosphatase 89 37 - 153 U/L [facility] AST 30 10 - 35 U/L [facility] ALT 24 6 - 29 U/L [facility] Comment: Test Performed at: [facility] [address] [place] [address] JARROD GALLEGOS MD Blood BLOOD SPECIMEN / Unknown 07/24/2023 10:27 AM 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 OPERATOR 07/24/2023 10:27 AM 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 OPERATOR us Harjinder Reece MD LAB - CHEMISTRY ORDERABLES Final Result [facility] [id number] [place] [address] from Last 3 Months or Most Recently Relevant to Health Maintenance Insurance [employer] MEDICARE ADV [employer] * Guarantor: LORENZA MUNOZ Account Type Relation to Patient Date of Phone Billing Address Personal/Family 1955 [address] [place] [address] [employer] Advance Directives * Full Code (Latest Code Status on File) Date Activated Date Inactivated Comments 08/28/2019 12:32 PM 08/29/2019 12:13 PM Care Teams Podiatrist Relationship Specialty Start Date End Date Bry Denny MD [address] [place] [phone] PCP - General Family Medicine 11/20/17
--- OUTSIDE RECORDS SUMMARY | 2025-02-18 13:39 | XMS_ITS | Clinical Summary ---
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 recommends that at least two of three specimens collected within a 3-6 month period be abnormal before considering a patient to be within a diagnostic category. Urine 07/29/2024 1:28 PM FOAMING MACHINE OPERATOR 07/29/2024 1:28 PM FOAMING MACHINE OPERATOR Narrative [facility] - 07/30/2024 5:24 AM FOAMING MACHINE OPERATOR FASTING:YES FASTING: YES Andie Dorantes MD LAB URINE ORDERABLES Final Result Performing Organization Address City/[facility]/ZIP Co de Phone Number [facility] [address] [address] [phone] * Lipid panel (07/29/2024 1:28 PM FOAMING MACHINE OPERATOR) Cholesterol 157 <200 mg/dL [facility] HDL 78 > OR = 50 mg/dL [facility] Triglycerides 62 <150 mg/dL [facility] LDL 65 mg/dL (calc) [facility] Comment: Reference range: <100 Desirable range <100 mg/dL for primary prevention; <70 mg/dL for patients with CHD or diabetic patients with > or = 2 CHD risk factors. LDL-C is now calculated using the Juni-Matthews calculation, which is a validated novel method providing better accuracy than the Friedewald equation in the estimation of LDL-C. Juni SS et al. JOHNNY. 2013;310(19): 9520-0406 (http://education.Night Node Software.Kibin/faq/HUX194) Chol/HDL ratio 2.0 <5.0 (calc) [facility] Non-HDL, (LDL+VLDL) 79 <130 mg/dL (calc) [facility] Comment: For patients with diabetes plus 1 major ASCVD risk factor, treating to a non-HDL-C goal of <100 mg/dL (LDL-C of <70 mg/dL) is considered a therapeutic option. Blood 07/29/2024 1:28 PM FOAMING MACHINE OPERATOR 07/29/2024 1:28 PM FOAMING MACHINE OPERATOR Narrative [facility] - 07/30/2024 5:24 AM FOAMING MACHINE OPERATOR FASTING:YES FASTING: YES Andie Dorantes MD LAB BLOOD ORDERABLES Final Result Performing Organization Address City/[facility]/ZIP Co de Phone Number QUEST [facility] [address] [address] [phone] * (ABNORMAL) Comprehensive metabolic panel (07/29/2024 1:28 PM FOAMING MACHINE OPERATOR) Glucose 108(H) 65 - 99 mg/dL [facility] Comment: Fasting reference interval For someone without known diabetes, a glucose value between 100 and 125 mg/dL is consistent with prediabetes and should be confirmed with a follow-up test. BUN 21 7 - 25 mg/dL [facility] Creatinine 0.62 0.50 - 1.05 mg/dL [facility] eGFR 98 > OR = 60 mL/min/1.7 3m2 [facility] BUN/creat ratio SEE NOTE: 6 - 22 (calc) [facility] Comment: Not Reported: BUN and Creatinine are within reference range. Sodium 138 135 - 146 mmol/L [facility] Potassium, pl 3.4(L) 3.5 - 5.3 mmol/L [facility] Chloride 98 98 - 110 mmol/L [facility] CO2 33(H) 20 - 32 mmol/L [facility] Calcium 9.6 8.6 - 10.4 mg/dL [facility] Protein, sr 7.7 6.1 - 8.1 g/dL [facility] Albumin 4.1 3.6 - 5.1 g/dL [facility] GLOBULIN 3.6 1.9 - 3.7 g/dL (calc) [facility] Alb/glob ratio 1.1 1.0 - 2.5 (calc) [facility] Bilirubin, total 0.6 0.2 - 1.2 mg/dL [facility] Alk phos 96 37 - 153 U/L [facility] AST 22 10 - 35 U/L [facility] ALT (SGPT) 13 6 - 29 U/L [facility] Blood 07/29/2024 1:28 PM FOAMING MACHINE OPERATOR 07/29/2024 1:28 PM FOAMING MACHINE OPERATOR Narrative [facility] - 07/30/2024 5:24 AM FOAMING MACHINE OPERATOR FASTING:YES FASTING: YES us Andie Dorantes MD LAB BLOOD ORDERABLES Final Result [facility] [address] [address] [phone] * Colonoscopy (02/07/2024 9:19 AM CDT) Anatomical Region Laterality Modality Other Narrative Procedure Note Andrey Arango MD - 02/07/2024 9:19 AM CDT ENDOSCOPY LAB Patient Name: Keerthi Munoz Procedure Date: 02/07/2024 9:19 AM Date of : 1955 Admit Type: Outpatient Age: 68 Gender: Female Attending MD: Melly Arango M.D. Room: [facility] ENDOSCOPY ROOM 03 Note Status: Finalized Procedure: Colonoscopy Indications: surveillance: Personal history of colonic polyps,Last colonoscopy: December 2018 Providers: Melly Arango M.D. Referring MD: Bry Denny MD Medicines: Monitored Anesthesia Care Complications: No immediate complications. Estimated Blood Loss: Estimated blood loss was minimal. Procedure: Pre-Anesthesia Assessment: - Immediately prior to administration ofmedications, the patient was re-assessed for adequacy to receive sedatives. The benefits, risks and alternatives of theprocedure and sedation were discussed and informed consentwas obtained. All questions were answered. Please referto the signed informed consent document in the medical record. The scope was passed under direct vision.The [id number] was introduced through the anusand advanced to the cecum, identified by appendiceal orifice and ileocecal valve. The colonoscopy was performed without difficulty. The patient tolerated the procedure well. The quality of the bowel preparation was good. The quality of the bowel preparation was evaluated using the BBPS (BostonBowel Preparation Scale) with scores of: Right Colon = 3, Transverse Colon = 3 and Left Colon = 3 (entiremucosa seen well with no residual staining, smallfragments of stool or opaque liquid). The total BBPS score equals 9. Bowel prep was administered using a split dose. Findings: A 3 mm polyp was found in the sigmoid colon. The polyp was sessile.The polyp was removed with a cold biopsy forceps. Resection and retrieval were complete. Non-bleeding internal hemorrhoids were found during retroflexion. The hemorrhoids were small. The exam was otherwise without abnormality. Impression: - One 3 mm polyp in the sigmoid colon, removed witha cold biopsy forceps. Resected and retrieved. - Non-bleeding internal hemorrhoids. - The examination was otherwise normal. Recommendation: - Await pathology results. Repeat colonoscopy in7-10 years for surveillance, since she had no polyps 5 years ago, and only single tiny polyp this time. Electronically signed by Melly Arango MD Melly Arango M.D. 02/07/2024 9:54:43 AM Number of Addenda: 0 Note Initiated On: 02/07/2024 9:19 AM us Andrey Arango MD ENDOSCOPY PROCEDURES Final Result * Dexa Axial Skeleton Bone Density 1 or 2 Site (07/27/2022 10:09 AM FOAMING MACHINE OPERATOR) Anatomical Region Laterality Modality Body N/A Other 07/27/2022 8:33 PM FOAMING MACHINE OPERATOR Narrative 07/27/2022 8:34 PM FOAMING MACHINE OPERATOR EXAM DESCRIPTION: DEXA AXIAL SKELETON BONE DENSITY 1 OR MORE SITES REASON FOR STUDY: 66 y/o year old F with given history of screening. 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 FINDINGS: AP LUMBAR SPINE L1-L4: Total BMD is 1.161 g/cm2 T-score is 1.0 LEFT HIP: Total BMD is 1.038 g/cm2 T-score is 0.8 Femoral neck BMD is 0.809 g/cm2 T-score is -0.4 FRAX: FRAX not reported due to T-scores of hip, femoral neck and/or spine being at or above -1.0 (Normal). IMPRESSION: Based on the left femoral neck bone mineral density (T-score -0.4 ) the patient has normal bone mass . REFERENCE: Bone mineral density: Normal (T-score above or = -1.0) Low bone mass (T-score between -1.0 and -2.5) replaces the previously used term osteopenia Osteoporosis (T-score = or below -2.5) Medical evaluation for secondary causes of low bone mineral density may be appropriate. FRAX is a World Health Organization validated fracture risk assessment tool that calculates a person's 10 year probability of a major osteoporosis related fracture and hip fracture. According to the National Osteoporosis Foundation guidelines, postmenopausal women and men age 50 or older with low bone mass and a 10 year probability of a major osteoporosis related fracture = or greater than 20% or a 10 year probability of a hip fracture = or greater than 3% should be considered for treatment. For further information, including treatment recommendations, please refer to the 2013 ISCD Official Positions (http://www.iscd.org) and the NOF's Clinician's Guide to Prevention and Treatment of Osteoporosis (http://www.nof.org/professionals/clinical-guidelines) THIS IS AN ELECTRONICALLY VERIFIED FINAL REPORT 07/27/2022 8:34 PM - Electronically signed by Danilo Winston M.D. MF: [id number] Report ID: [id number] Reading Location: [address] Note Danilo Winston MD - 07/27/2022 EXAM DESCRIPTION: DEXA AXIAL SKELETON BONE DENSITY 1 OR MORE SITES REASON FOR STUDY: 66 y/o year old F with given history ofscreening. 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 FINDINGS: AP LUMBAR SPINE L1-L4: Total BMD is 1.161 g/cm2 T-score is 1.0 LEFT HIP: Total BMD is 1.038 g/cm2 T-score is 0.8 Femoral neck BMD is 0.809 g/cm2 T-score is -0.4 FRAX: FRAX not reported due to T-scores of hip, femoral neck and/or spine beingat or above -1.0 (Normal). IMPRESSION: Based on the left femoral neck bone mineral density (T-score -0.4 )the patient has normal bone mass . REFERENCE: Bone mineral density: Normal (T-score above or = -1.0) Low bone mass (T-score between -1.0 and -2.5) replaces thepreviously used term osteopenia Osteoporosis (T-score = or below -2.5) Medical evaluation for secondary causes of low bone mineral density may be appropriate. FRAX is a World Health Organization validated fracture risk assessmenttool that calculates a person's 10 year probability of a major osteoporosisrelated fracture and hip fracture. According to the National OsteoporosisFoundation guidelines, postmenopausal women and men age 50 or older with low bonemass and a 10 year probability of a major osteoporosis related fracture = or greater than 20% or a 10 year probability of a hip fracture = or greaterthan 3% should be considered for treatment. For further information, including treatment recommendations, please referto the 2013 ISCD Official Positions (http://www.iscd.org) and the NOF's Clinician's Guide to Prevention and Treatment of Osteoporosis (http://www.nof.org/professionals/clinical-guidelines) THIS IS AN ELECTRONICALLY VERIFIED FINAL REPORT 07/27/2022 8:34 PM - Electronically signed by Danilo Winston M.D. MF: [id number] Report ID: [id number] Reading Location: [place] [address] Louise Wu INCIDENT RESPONSE COORDINATOR IMG DXA PROCEDURES Final Result * Diabetic Eye Exam (05/03/2020) Historical Provider HEALTH MAINTENANCE Final Result * DIABETES FOOT EXAM (01/30/2017) Diabetic Foot Exam Normal Comment:Dryness noted b/l Historical Provider HEALTH MAINTENANCE Final Result from Last 3 Months or Most Recently Relevant to Health Maintenance Insurance [employer] [facility] [id number] [employer] MEDICARE [facility] Advance Directives For more information, please contact: [phone] * Full Code (Latest Code Status on File) Date Activated Date Inactivated Comments 02/07/2024 7:40 AM 02/07/2024 2:39 PM * Full Code Date Activated Date Inactivated Comments 12/26/2018 7:10 AM 12/26/2018 1:49 PM Care Teams Videographer Relationship Specialty Start Date End Date Bry Denny MD PCP - General 10/26/17 Cherri Boston, INCIDENT RESPONSE COORDINATOR [address] [place] [address] DR [address] [place] [address] Nurse Practitioner Obstetrics and Gynecology 10/25/23
--- OUTSIDE RECORDS SUMMARY | 2025-02-18 13:39 | XMS_ITS | Clinical Summary ---
Author Organization [facility] Address [address] [place] [address] Phone Care Team Providers Care Qualitative Field Coordinator Name Role Phone Addison Aleman MD Unavailable [phone] Bry Denny MD Primary Care Provider Allergies Active Allergy Reactions Criticality Noted Date Comments Nsaids Unknown 07/05/2016 Gastric Bypass Simvastatin Other (see Comments) 08/08/2019 leg pain Sulfa Antibiotics Rash Medium 07/05/2016 Medications lisinopril (PRINIVIL, ZESTRIL) 5 MG Tablet Take 20 mg by mouth daily. 6 Active vitamin b-12 (CYANOCOBALAMIN ) 250 MCG Tablet Take 1,000 mcg by mouth daily. Active Vitamins/Minera ls Tablet Take 1 Tab by mouth daily. Active Cholecalciferol (VITAMIN D3) 5000 units Capsule Take 5,000 Units by mouth daily. Active hydroCHLOROthia zide 25 MG Tablet Take 25 mg by mouth daily. Active Insulin Infusion Pump (MINIMKuailexue 670G INSULIN PUMP) Device by Does not apply route. Active Aspirin 81 MG Tablet Take 81 mg by mouth daily. Active pyridostigmine (MESTINON) 60 MG Tablet Take 60 mg by mouth 3 times daily. Active Topiramate (TOPAMAX) 50 MG Tablet Take 150 mg by mouth nightly. Active GARLIC PO Take by mouth. Activ e Insulin Aspart (NOVOLOG SC) by Subcutaneous route. Per pump Active oxyCODONE-aceta minophen (PERCOCET) 5-325 MG Tablet Take 1-2 Tabs by mouth every 4 hours as needed for Moderate or more severe pain. 30 Tab 9 Active Active Problems Problem Noted Date Diagnosed Date Acute cholecystitis 07/26/2019 Type 2 diabetes mellitus wit hout complication, with long-term current use of insulin 07/26/2019 Myasthenia gravis in remission 07/26/2019 Persistent adjustment disord er with mixed anxiety and depressed mood 12/20/2018 High anion gap metabolic acidosis 07/01/2017 Diabetic ketoacidosis withou t coma associated with type 2 diabetes mellitus 06/30/2017 Benign essential HTN 06/30/2017 Leukocytosis 06/30/2017 MARISELA (acute kidney injury) 06/30/2017 Pilonidal cyst with abscess 07/07/2016 Resolved Problems Problem Noted Date Diagnosed Date Resolved Date Chest pain 07/26/2019 07/26/2019 Myasthenia gravis 06/30/2017 07/26/2019 Immunizations Immunization Administration Dates Next Due Influenza Vaccine greater than 3 yrs 05/24/2016 Family History Medical History Relation Name Comments Diabetes Father Heart Attack Father Hypertension Father Cancer Mother thyroid Hypertension Mother Relation Name Status Comments Father Mother Social History Tobacco Use Types Packs/Day Years Used Date Smoking Tobacco: Former Cigarettes Q uit: 08/20/1977 Smokeless Tobacco: Never Alcohol Use Standard Drinks/Week Comments Yes 0 (1 standard drink = 0.6 oz pur e alcohol) Socially not even weekly Sexually Active Control Partners Comments Yes None Male Comments No Sex and Gender Information Value Date Recorded Sex Assigned at Not on file Legal Sex Female 12:22 AM CDT Gender Identity Not on file Sexual Orientation Not on file Last Filed Vital Signs Vital Sign Reading Time Taken Comments Blood Pressure 113/94 08/08/2019 4:06 PM [employer] Pulse 61 08/08/2019 6:15 PM [employer] Temperature 36.4 C (97.5 F) 08/08/2019 4:06 PM [employer] Respiratory Rate 16 08/08/2019 4:06 PM [employer] Oxygen Saturation 99% 08/08/2019 6:15 PM [employer] Inhaled Oxygen Concentration - - Weight 83.9 kg (185 lb) 08/08/2019 4:06 PM [employer] Height 170.2 cm (5' 7) 08/08/2019 4:06 PM [employer] Body Mass Index 28.98 08/08/2019 4:06 PM [employer] Plan of Treatment Health Maintenance Due Date Last Done Comments Diabetes: Eye Exam 1955 Diabetes: Foot Exam 1955 Hepatitis C Virus (HCV) Screening 1955 TdaP Immunization 1955 Pneumococcal Immunization (50+ years) (1 of 2 - PCV) 1976 Cologuard 2002 Colonoscopy 2002 Colorectal Cancer Screening 2002 Immunochemical Fecal Occult Blood 2002 Zoster Immunization (1 of 2) 11/26/2007 Respiratory Syncytial Virus (RSV) Immunization (Adult) (1 - Risk 60-74 years 1-dose series) 2017 Diabetes: Hemoglobin A1c 01/25/2020 019, 07/10/2019, 11/28/2018, Additional history exists Diabetes: Nephropathy Screening 08/08/2020 08/08/2019, 07/26/2019, 07/04/2017, Additional history exists SARS-COV-2 Immunization ( season) 2024 11/24/2021, 09/11/2020, 08/21/2020 Influenza Immunization (Season Ended) 2025 05/22/2018, 05/24/2016 Hepatitis B Immunization Aged Out No longer eligible based on patient's age to complete this topic Human Papillomavirus (HPV) Immunization Aged Out No longer eligible based on patient's age to complete this topic Meningococcal Immunization (ACWY) Aged Out No longer eligible based on patient's age to complete this topic Rotavirus Immunization Aged Out No lo nger eligible based on patient's age to complete this topic Procedures Procedure Name Priority Date/Time Associated Diagnosis Comments CMP (COMPREHENSIVE METABOLIC PANEL) STAT 08/08/2019 4:18 PM [employer] HEMOGLOBIN A1C W/ ESTIMATED GLUCOSE Routine 07/26/2019 5:50 AM [employer] from Last 3 Months or Most Recently Relevant to Health Maintenance Results * (ABNORMAL) CMP (Comprehensive Metabolic Panel) (08/08/2019 4:18 PM [employer]) SODIUM 135(L) 136 - 144 mmol/L 08/08/2019 4:54 PM [employer] [facility] POTASSIUM 3.5 3.5 - 5.1 mmol/L 08/08/2019 4:54 PM [facility] CHLORIDE 96(L) 100 - 110 mmol/L 08/08/2019 4:54 PM [facility] CO2, VENOUS 27 22 - 32 mmol/L 08/08/2019 4:54 PM [facility] ANION GAP 15.5 8.0 - 20.0 mmol/L 08/08/2019 4:54 PM [facility] GLUCOSE 167(H) 70 - 99 mg/dL 08/08/2019 4:54 PM [facility] BUN 34(H) 8 - 23 mg/dL 08/08/2019 4:54 PM [facility] CREATININE, BLOOD 0.87 0.60 - 1.10 mg/dL 08/08/2019 4:54 PM [facility] BUN/CREATININE RATIO 39(H) 12 - 20 ratio 08/08/2019 4:54 PM [facility] TOTAL PROTEIN 9.3(H) 6.0 - 8.3 g/dL 08/08/2019 4:54 PM [facility] ALBUMIN 3.8 3.5 - 5.2 g/dL 08/08/2019 4:54 PM [facility] Comment: The colormetric methods used for the determination of Albumin may lead to falsely elevated test results in patients suffering from renal failure or insufficiency due to interference with other proteins. A/G RATIO 0.7(L) 1.0 - 2.0 08/08/2019 4:54 PM [facility] CALCIUM 9.6 8.9 - 10.3 mg/dL 08/08/2019 4:54 PM [facility] T BILI 0.3 <=1.2 mg/dL 08/08/2019 4:54 PM [facility] SGOT (AST) 23 <=32 U/L 08/08/2019 4:54 PM [facility] SGPT (ALT) 24 <=33 U/L 08/08/2019 4:54 PM [facility] ALKALINE PHOSPHATASE 147(H) 35 - 105 U/L 08/08/2019 4:54 PM [employer] [facility] GFR, EST. NONAFRICAN >60 >=60 08/08/2019 4:54 PM [employer] [facility] GFR, EST. >60 >=60 019 4:54 PM [employer] [facility] Comment: Creatinine Clearance is the preferred criteria for selecting drug dose adjustments in renally impaired patients. The GFR is provided as additional pertinent clinical information. GFR is reported in mL/min/1.73 sq m. Blood specimen (specimen) Venous Catheter (IV) / Unknown 08/08/2019 4:18 PM [employer] [facility] 08/08/2019 4:31 PM [employer] [facility] Wisam Santiago MD CHEMISTRY ORDERABLES Final Resu lt Performing Organization Address [facility] Co de Phone Number [facility] [place] [address] * (ABNORMAL) Hemoglobin A1C (07/26/2019 5:50 AM [employer]) HGB-A1C 7.4(H) 4.0 - 6.0 % 07/26/2019 6:47 AM [employer] [facility] Est Average Glucose 165.7 mg/dL 07/26/2019 6:47 AM [employer] [facility] Blood specimen (specimen) Butterfly Puncture / Unknown 07/26/2019 5:50 AM [employer] 07/26/2019 6:01 AM [employer] Narrative [facility] - 07/26/2019 6:47 AM [employer] HEMOGLOBIN A1C: DIABETIC PATIENTS: WELL-CONTROLLED: 6.2 - 7.0 INTERMEDIATE WELL-CONTROLLED: 7.0 - 9.0 POORLY-CONTROLLED: >9.0 us Amira Mccormick APRN, COMMUNITY ENGAGEMENT LEADER CHEMISTRY ORDERABLE S Final Result Performing Organization Address [facility]/ZIP Co de Phone Number [facility] [place] [address] from Last 3 Months or Most Recently Relevant to Health Maintenance Insurance [address] GENER[employer] Advance Directives Documents on File Type Date Recorded Patient Refrigerator Repair Technician Expl anation Advance Care Planning Discussion 02/26/2018 3:18 PM ACP DISCUSSION RECOR D Advance Care Planning Discussion 02/26/2018 3:18 PM ACP COVER SHEET Advance Care Planning Discussion 02/26/2018 3:18 PM POA-HC * Full Code (Latest Code Status on File) Date Activated Date Inactivated Comments 07/26/2019 12:48 AM 07/27/2019 5:59 PM CPR-Full Tr eatment: FULL ARREST: Attempt Resuscitation/CPR wit intubation and mechanical ventilation. PRE-ARREST: Use entire range of life support measures to stabilize the patient. * Full Code Date Activated Date Inactivated Comments 06/30/2017 7:06 PM 07/04/2017 5:42 PM CPR-Full T reatment: FULL ARREST: Attempt Resuscitation/CPR wit intubation and mechanical ventilation. PRE-ARREST: Use entire range of life support measures to stabilize the patient. Care Teams Qualitative Field Coordinator Relationship Specialty Start Date End Date Bry Denny MD [address] [place] [id number] PCP - General Family Medicine 11/14/18 Addison Aleman MD General Surgery 06/29/16
--- OUTSIDE RECORDS SUMMARY | 2025-02-18 13:39 | XMS_ITS | Encounter Summary ---
Author Organization [facility] Address [address] [place] [address] Care Team Providers Care Stacking Machine Operator Name Role Phone Bry Denny MD Primary Care Provider [phone] Cherri Boston DATA PROCESSING OPERATOR Unavailable [phone] Encounter Details Date Type Department Care Team (Late st Contact Info) Description 01/11/2025 Results Follow-Up [facility] [address] [place] [address] Ja Quintana MD [address] [place] [address] [address] [place] [address] Screening Mammogram Bilateral W Benedict Social History Tobacco Use Types Packs/Day Years Used Date Smoking Tobacco: Former Cigarettes Q uit: 1978 Passive Smoke Exposure: Past Smokeless Tobacco: Never Alcohol Use Standard Drinks/Week [...] on file Legal Sex Female 11:13 PM HEAD OF TRANSPORT LOGISTICS Gender Identity Not on file Sexual Orientation Not on file documented as of this encounter Plan of Treatment Not on file documented as of this encounter Visit Diagnoses Not on filedocumented in this encounter Care Teams Stacking Machine Operator Relationship Specialty Start Date End Date Bry Denny MD PCP - General 10/26/17 Cherri Boston NP [address] [place] [address] DR [place] [place] [id number] Nurse Practitioner Obstetrics and Gynecology 10/25/23 documented as of this encounter
--- OUTSIDE RECORDS SUMMARY | 2025-02-18 13:39 | XMS_ITS | Encounter Summary ---
Author Organization [facility] Address [address] [facility] [place] [address] Care Team Providers Care Generator Worker Name Role Phone Bry Denny MD Primary Care Provider [phone] Reason for Visit * Oncology Prior Authorization (Routine) - Authorized Specialty Diagnoses / Procedures Referred By Landen george Referred To Contact Diagnoses Ocular myasthenia gravis (HCC) Procedures TX INJ IG GAMUNEX IV NONLYO 500 [place] [id number] [place] [phone] Phone: tel: fax: [place]jinder Reece MD [id number] [place] [phone] Phone: tel: fax: Referral ID Status Reason Start Date Expiration Date V isits Requested Visits Authorized [id number] Authorized 01/05/2025 07/08/2025 9 9 Encounter Details Date Type Department Care Team (Late st Contact Info) Description 02/18/2025 8:42 AM CDT Hospital Encounter Infusion Services at [facility] [address] [facility] [address] [place] [address] [place] [address] [facility] [address] [place] [phone] Social History Tobacco Use Types Packs/Day Years Used Date Smoking Tobacco: Former Cigarettes Q uit: 06/13/1970 Smokeless Tobacco: Never Alcohol Use Standard Drinks/Week Comments Yes 0 (1 standard drink = 0.6 oz pur e alcohol) very rarely PHQ-2 Answer Date Recorded Patient Health Questionnaire-2 Score 0 02/18/2025 Comments No Sex and Gender Information Value Date Recorded Sex Assigned at Not on file Legal Sex Female 11:57 AM DIRECTOR INDUSTRIAL MUSEUM Gender Identity Not on file Sexual Orientation Not on file documented as of this encounter Last Filed Vital Signs Vital Sign Reading Time Taken Comments Blood Pressure 100/63 02/18/2025 10:36 AM CDT Pulse 60 02/18/2025 10:36 AM CDT Temperature 36.6 C (97.9 F) 02/18/2025 10:36 AM CDT Respiratory Rate 16 02/18/2025 10:36 AM CDT Oxygen Saturation 98% 02/18/2025 10:36 AM CDT Inhaled Oxygen Concentration - - Weight 87.1 kg (192 lb) 02/18/2025 8:53 AM CDT Height - - Body Mass Index 30.06 11/26/2024 9:04 AM CDT documented in this encounter Functional Status * Is person deaf or have serious hearing difficulty? Answer Date of Assessment Author No 08/28/2019 12:36 PM Annabel Mccurdy RN * Is person blind or have serious difficulty seeing? Answer Date of Assessment Author No 08/28/2019 12:36 PM Annabel Mccurdy RN * Does person have serious difficulty walking/climbing stairs? Answer Date of Assessment Author No 08/28/2019 12:36 PM Annabel Mccurdy RN * Does person have difficulty dressing/bathing? Answer Date of Assessment Author No 08/28/2019 12:36 PM Annabel Mccurdy RN * Does person have difficulty doing errands alone? Answer Date of Assessment Author No 08/28/2019 12:36 PM DIRECTOR INDUSTRIAL MUSEUM Annabel Tejeda RN * Over the past 2 weeks, how often have you been bothered by any of the following problems? Question Answer Date of Assessment Author Little interest or pleasure in doing things Not at all 02/18/2025 8:56 AM CDT Aslhey Dorantes RN Feeling down, depressed, or hopeless Not at all 02/18/2025 8:56 AM CDT Ashley Dorantes RN Patient Health Questionnaire-2 Score 0 02/18/2025 8:56 AM CDT Izabela Dorantes RN documented as of this encounter Mental Status * Does person have difficulty concentrating/remembering/making decisions? Answer Entry Date Author No 08/28/2019 12:36 PM Annabel Mccurdy RN documented in this encounter Progress Notes * Ashley Dorantes RN - 02/18/2025 11:58 AM CDT Keerthi Munoz 1955 02/18/2025 Patient completed scheduled IVIG at [facility]. Please call with any questions at [phone]. BP 100/63 Pulse 60 Temp 97.9 ??F (36.6 ??C) Resp 16 Wt 87.1 kg (192 lb) SpO2 98% Medications given on 02/18/2025 MEDICATIONS FOR CURRENT ENCOUNTER: SCHEDULED MEDICATIONS: CONTINUOUS MEDICATIONS: immune globulin (GAMUNEX-C) 10 % 60 g, Intravenous, Continuous PRN MEDICATIONS: 0.9% NaCl injection 1-40 mL, Intracatheter, PRN famotidine (Pepcid) injection 20 mg, Intravenous, Once PRN documented in this encounter Plan of Treatment Upcoming Encounters Date Type Department Care Team (Late st Contact Info) Description 02/23/2025 10:20 AM CDT Office Visit [facility] [address] [facility] [address] [place] [phone] [place] [address] [facility] [address] [place] [phone] 04/01/2025 8:30 AM CDT Appointment Infusion Services at [facility] [address] [facility] [address] [place], [place] [id number] [place] [address] [facility] [address] [place] [address] documented as of this encounter Visit Diagnoses Diagnosis Ocular myasthenia gravis (HCC)- Primary Myasthenia gravis without exacerbation documented in this encounter Administered Medications Active Administered Medications - up to 3 most recent administrations Medication Order MAR Action Action Date Dose Rate Site 0.9% NaCl injection 1-40 mL 1-40 mL, Intracatheter, PRN, Other, vascular access device flush, Starting on Sun02/18/25 at 0854, Until Sun02/18/25 at 2052, For Port-a-Cath, Central Line, and PICC, flush with 10ml prior to and after each use and flush with 20ml after blood draws.Indications:Ocular myasthenia gravis (HCC) $ Given 02/18/2025 11:56 AM CDT 10 mL $ Given 02/18/2025 9:08 AM CDT 10 mL famotidine (Pepcid) injection 20 mg 20 mg, Intravenous, ONCE PRN, Hypersensitivity: Hives, itching, flushing, swollen lips or tongue., Starting on Sun02/18/25 at 0854, Until Discontinued, To counteract the multiple effects of histamine release, both H1 and H2 blockers should be administered. Dilute with 0.9% NaCl, D5W solution, or SWI to a volume of 5 to 10 mL and administer over at least 2 minutes.Indications:Ocular myasthenia gravis (HCC) $ Given 02/18/2025 9:09 AM CDT 20 mg immune globulin (GAMUNEX-C) 10 % 60 g 60 g (rounded from 61.6 g = 1 g/kg 61.6 kg [place] weight), at 0-999 mL/hr, Intravenous, CONTINUOUS, Starting on Sun02/18/25 at 0900, Until Sun02/18/25 at 1459, Initiate IVIG at 27 mL/hr with VTBI: 6.77 mL for 15 minutes. If tolerated, increase rate to 54 mL/hr with VTBI: 13.55 mL for 15 min. If tolerated, increase rate to 108 mL/hr with VTBI: 27.09 mL for 15 min. If tolerated, increase rate to 217 mL/hr with VTBI: 54.18 mL for 15 min. If tolerated, increase rate to 433 mL/hr until contents completely infused. Do NOT infuse with concurrent fluids. IVIG should be infused alone. Do NOT infuse with concurrent fluids. IVIG should be infused alone. Do NOT infuse with concurrent fluids. IVIG should be infused alone.Indications:Ocular myasthenia gravis (HCC) Rate Change 02/18/2025 10:37 AM CDT 433 mL /hr Rate Change 02/18/2025 10:19 AM CDT 217 mL/hr Rate Change 02/18/2025 10:00 AM CDT 108 mL/hr documented in this encounter Care Teams Generator Worker Relationship Specialty Start Date End Date Bry Denny MD [address] [place] [phone] PCP - General Family Medicine 11/20/17 documented as of this encounter
--- OUTSIDE RECORDS SUMMARY | 2025-02-18 13:39 | XMS_ITS | Referral Summary ---
Author Organization [facility] Address [address] [place] [address] Care Team Providers Care Clinical Reimbursement Specialist Name Role Phone Bry Denny MD Primary Care Provider [phone] Cherri Boston MIXING PLANT OPERATOR Unavailable [phone] Encounters Date Type Department Care Team Description 02/02/2025 9:30 AM CDT Office Visit [facility] Endocrinology Metabolism and Lipid [address] [facility] [place] [address] [place] [address] [place] [address] Type 1 diabetes mellitus with hyperglycemia (HCC) (Primary Dx) 02/02/2025 9:00 AM CDT Office Visit [facility] Endocrinology Metabolism and Lipid [address] [facility] [place] [address] [place] [address] [place] [address] Andie Dorantes MD Type 1 diabetes mellitus with hyperglycemia (HCC) (Primary Dx); Primary hypertension; Insulin pump in place; H/O gastric bypass; Mixed diabetic hyperlipidemia associated with type 1 diabetes mellitus (HCC) 01/11/2025 Results Follow-Up [facility] [address] [facility] [address] [place] [phone] Ja Quintana MD Screening Mammogram Bilateral W Benedict 01/02/2025 8:36 AM CDT - 01/02/2025 11:59 PM CDT Hospital Encounter [facility] [address] [place] [address] Screening mammogram, encounter for Discharge Disposition: Discharge to home or self care from Last 3 Months Allergies Active Allergy Reactions Criticality Noted Date [...] Active pen needle, diabetic 32 gauge x 5/32 needleIndications :Type 1 diabetes mellitus with hyperglycemia [...] syringe-needle U-100 0.3 mL 31 gauge x 5/16 syringe Use to inject 1-4 times daily as directed when off pump 100 each 3 07/21/20 24 Active glucagon (Gvoke) 1 mg/0.2 mL solution Use as directed for severe hypoglycemia 0.2 mL 3 07/21/20 24 Active insulin NPH (HumuLIN N, NovoLIN N) 100 unit/mL vial for injection Inject 8 units twice daily when off pump - TDD 16 units 10 mL 11 07/21/20 24 025 Active ezetimibe (ZETIA) 10 mg [...] 07/24/2023 Assessment & Plan (07/24/2023 11:46 AM PHP SOFTWARE ENGINEER): Discussed possible causes of decreased sexual desire [...] phone. Assessment & Plan (07/22/2019 2:41 PM PHP SOFTWARE ENGINEER): Reviewed calorie restriction based on BMR as [...] 12/19/2018 Assessment & Plan (07/22/2019 2:49 PM PHP SOFTWARE ENGINEER): Will be having labs through endocrine. Assessment & Plan (05/07/2019 11:20 AM CDT): Reviewed [place] labs in chart. Assessment & Plan (12/19/2018 12:59 PM CDT): Reviewed recent labs with her. She was concerned about elevated PTH -- discussed mildly elevated and Ca WNL; discussed association of obesity and hyperparathyroidism/vit D deficiency. Personal history of colonic polyps 10/08/2018 Overview (10/08/2018): Added automatically from request for surgery [id number] Statin myopathy 09/17/2018 Obesity (BMI 30-39.9) 09/17/2018 Assessment & Plan (04/28/2020 9:44 PM CDT): Obesity is improving with treatment. Diet interventions: as noted. Regular aerobic exercise program discussed. Pharmacotherapy as ordered. Assessment & Plan (07/22/2019 2:48 PM PHP SOFTWARE ENGINEER): Obesity is overall about the same.. Behavioral [...] 01/18 Assessment & Plan (07/22/2019 2:41 PM PHP SOFTWARE ENGINEER): Briefly discussed option of GLP-1 RA. Assessment & Plan (12/19/2018 12:50 PM CDT): Discussed potential use of GLP-1 analog -- would discuss with hair salon manager. Myasthenia gravis 12/03/2015 Overview (11/24/2016): Myasthenia gravis [...] hyperlipidemia 3 02/11/2018 Overview (11/24/2016): Diabetes mellitus Immunizations Immunization Administration Dates Next Due Influenza, Trivalent, IM (MDV) 05/31/2011 Influenza, Unspecified 05/20/2024 RSV Vaccine, Pref, Recombina nt, Subunit, Adjuvanted, PF, IM (Arexvy) 09/10/2024 Td, adsorbed 02/10/1993 Social History Tobacco Use Types Packs/Day Years [...] on file Legal Sex Female 11:13 PM PHP SOFTWARE ENGINEER Gender Identity Not on file Sexual Orientation Not on file Last Filed Vital Signs Vital Sign Reading Time Taken Comments Blood Pressure 126/77 02/02/2025 9:11 AM CDT Pulse 60 02/02/2025 9:11 AM CDT Temperature 36.8 C (98.2 F) 02/02/2025 9:11 AM CDT Respiratory Rate 16 02/07/2024 10:28 AM CDT Oxygen Saturation 100% 07/29/2024 11:35 AM PHP SOFTWARE ENGINEER Inhaled Oxygen Concentration - - Weight 87 kg (191 lb 12.8 oz) 02/02/2025 9:11 AM CDT Height 168.9 cm (5' 6.5) 02/02/2025 9:11 AM CDT Body Mass Index 30.49 02/02/2025 9:11 AM CDT Plan of Treatment Not on file Medical Devices Implanted Type Area Stack Clerk Device Identifier Shelf Expiration Date Model / Serial / Lot Bard Peripheral Vascular Ultraclip Bard 17ga 10cm 2 Trigger Permanent Ultrasound [id number] - [id number] - [id number] Implanted:Qty: 1 on 09/27/2022 by Macario Latham MD at [facility] Breast Left: Breast Bard Peripheral Vascular 04/16/2025 [id number] / [id number] / [id number] Description:Implanted Left B reast 12:00 area 2 cmfn Lead (Rv)-01/26/2020 Implanted:03/2020 by Shen Ordonez MD (Quantity not on file) Lead Heart Medtronic Cardiac Rhythm Mgmt 5076-52 / [id number] / Lead (Ra)-01/26/2020 Implanted:03/2020 by Shen Ordonez MD (Quantity not on file) Lead Heart Medtronic Cardiac Rhythm Mgmt 5076-45 / [id number] / Pacemaker-2019 Implanted:03/2020 by Shen Ordonez MD (Quantity not on file) Pacemaker Chest Medtronic Cardiac Rhythm Mgmt MANDO [id number] / [id number] / Procedures Procedure Name Priority Date/Time Associated Diagnosis Comments POCT GLUCOSE [id number] Routine 02/02/2025 9: 18 AM CDT Type 1 diabetes mellitus with hyperglycemia (HCC) SCREENING MAMMOGRAM BILATERAL W BENEDICT Schedule Routine, Read Routine (OP Routine) 01/02/2025 8:55 AM CDT Screening mammogram, encounter for POCT HEMOGLOBIN A1C Routine 11/10/2024 10:34 AM CDT Type 1 diabetes mellitus with hyperglycemia (HCC) COMPREHENSIVE METABOLIC PANEL Routine 07/29/2024 1:28 PM PHP SOFTWARE ENGINEER Type 1 diabetes mellitus with hyperglycemia (HCC) Primary hypertension Mixed diabetic hyperlipidemia associated with type 1 diabetes mellitus (HCC) Insulin pump in place H/O gastric bypass LIPID PANEL Routine 07/29/2024 1:28 PM PHP SOFTWARE ENGINEER Type 1 diabetes mellitus with hyperglycemia (HCC) Primary hypertension Mixed diabetic hyperlipidemia associated with type 1 diabetes mellitus (HCC) Insulin pump in place H/O gastric bypass ALBUMIN CREATININE RATIO, URINE Routine 07/29/2024 1:28 PM PHP SOFTWARE ENGINEER Type 1 diabetes mellitus with hyperglycemia (HCC) Primary hypertension Mixed diabetic hyperlipidemia associated with type 1 diabetes mellitus (HCC) Insulin pump in place H/O gastric bypass THYROID FUNCTION CASCADE Routine 07/29/2024 1:28 PM PHP SOFTWARE ENGINEER Type 1 diabetes mellitus with hyperglycemia (HCC) Primary hypertension Mixed diabetic hyperlipidemia associated with type 1 diabetes mellitus (HCC) Insulin pump in place H/O gastric bypass COLONOSCOPY 02/07/2024 9:19 AM CDT DEXA AXIAL SKELETON BONE DENSITY 1 OR MORE SITES Schedule Routine, Read Routine (OP Routine) 07/27/2022 10:09 AM PHP SOFTWARE ENGINEER Screening for osteoporosis DIABETIC EYE EXAM Routine 05/03/2020 HM DIABETES FOOT EXAM Routine 01/30/2017 from Last [...] obscures a portion of the left axilla. Self Screening Mammogram IMG MAMMO PROCEDURES Fi nal Result * POCT hemoglobin A1c (11/10/2024 10:34 AM CDT) Hemoglobin A1C, POC 7.3 4.0 - 5.6 % Blood 11/10/2024 10:3 4 AM CDT Luciana FRITZ POINT OF CARE TEST ORDERA BLES Final Result * Thyroid Function Himrod (07/29/2024 1:28 PM PHP SOFTWARE ENGINEER) TSH 1.26 0.40 - 4.50 mIU/L [facility] Comment: Your request to have a duplicate copy faxed has been acknowledged. Queued to: [id number] Blood 07/29/2024 1:28 PM PHP SOFTWARE ENGINEER 07/29/2024 1:28 PM PHP SOFTWARE ENGINEER Narrative [facility] - 07/30/2024 5:24 AM PHP SOFTWARE ENGINEER FASTING:YES FASTING: YES Andie Dorantes MD LAB BLOOD ORDERABLES Final Result Performing Organization Address [facility] Co de Phone Number [facility] [address] [place] [address] * Albumin Creatinine Ratio, Urine (07/29/2024 1:28 PM PHP SOFTWARE ENGINEER) Creatinine, ur 47 20 - 275 mg/dL [...] a diagnostic category. Urine 07/29/2024 1:28 PM PHP SOFTWARE ENGINEER 07/29/2024 1:28 PM PHP SOFTWARE ENGINEER Narrative [facility] - 07/30/2024 5:24 AM PHP SOFTWARE ENGINEER FASTING:YES FASTING: YES Andie Dorantes MD LAB URINE ORDERABLES Final Result Performing Organization Address [facility] de Phone Number [facility] [address] [place] [address] * Lipid panel (07/29/2024 1:28 PM PHP SOFTWARE ENGINEER) Cholesterol 157 <200 mg/dL [facility] [...] factors. LDL-C is now calculated using the Shireen calculation, which is a validated novel method providing better accuracy than the Friedewald equation in the estimation of LDL-C. Juni LAFLEUR et al. JOHNNY. 2013;310(19): 7226-7114 (http://education.Cel-Fi by Nextivity/faq/QIZ745) Chol/HDL ratio 2.0 <5.0 (calc) [facility] Non-HDL, (LDL+VLDL) 79 <130 mg/dL (calc) [facility] Comment: For patients with diabetes plus 1 major ASCVD risk factor, treating to a non-HDL-C goal of <100 mg/dL (LDL-C of <70 mg/dL) is considered a therapeutic option. Blood 07/29/2024 1:28 PM PHP SOFTWARE ENGINEER 07/29/2024 1:28 PM PHP SOFTWARE ENGINEER Narrative [facility] - 07/30/2024 5:24 AM PHP SOFTWARE ENGINEER FASTING:YES FASTING: YES us Andie Dorantes MD LAB BLOOD ORDERABLES Final Result [facility] [address] [facility] [place] [phone] * (ABNORMAL) Comprehensive metabolic panel (07/29/2024 1:28 PM PHP SOFTWARE ENGINEER) Pathologist [facility] Glucose 108(H) 65 - 99 mg/dL [facility] [...] [facility] Blood 07/29/2024 1:28 PM PHP SOFTWARE ENGINEER 07/29/2024 1:28 PM PHP SOFTWARE ENGINEER Narrative [facility] - 07/30/2024 5:24 AM PHP SOFTWARE ENGINEER FASTING:YES FASTING: YES us Andie Dorantes MD LAB BLOOD ORDERABLES Final Result [facility] [address] [facility] [place] [phone] * Colonoscopy (02/07/2024 9:19 AM CDT) Anatomical Region Laterality Modality Other Narrative Procedure Note Andrey Arango MD - 02/07/2024 9:19 AM CDT ENDOSCOPY LAB Patient Name: Keerthi Munoz Procedure Date: 02/07/2024 9:19 AM Date of : 1955 Admit Type: Outpatient Age: 68 Gender: Female Attending MD: Melly Arango M.D. Room: [facility] ENDOSCOPY ROOM 03 Note Status: Finalized Procedure: [...] The scope was passed under direct vision.The [id number] was introduced through the anusand advanced to [...] 1 or 2 Site (07/27/2022 10:09 AM PHP SOFTWARE ENGINEER) Anatomical Region Laterality Modality Body N/A Other 07/27/2022 8:33 PM PHP SOFTWARE ENGINEER Narrative 07/27/2022 8:34 PM PHP SOFTWARE ENGINEER EXAM DESCRIPTION: DEXA AXIAL SKELETON BONE DENSITY 1 OR MORE SITES REASON FOR STUDY: 66 y/o year old F with given history of screening. 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 MF: OSMIN Report ID: [id number] Reading Location: [place] [address] Procedure Note Danilo Winston MD - 07/27/2022 EXAM DESCRIPTION: DEXA AXIAL SKELETON BONE DENSITY 1 OR MORE SITES REASON FOR STUDY: 66 y/o year old F with given history ofscreening. 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 MF: OSMIN Report ID: [id number] Reading Location: [place] [address] Louise Wu MIXING PLANT OPERATOR IMG DXA PROCEDURES Final Result * Diabetic Eye Exam (05/03/2020) Historical Provider HEALTH MAINTENANCE Final Result * DIABETES FOOT EXAM (01/30/2017) [facility] Diabetic Foot Exam Normal Comment:Dryness noted b/l Historical Provider HEALTH MAINTENANCE Final Result from Last 3 Months or Most Recently Relevant to Health Maintenance Insurance [facility] AETNA MEDICARE FOR[facility]LY [facility] MEDICARE Advance Directives For more information, please contact: [phone] * Full Code (Latest Code Status on File) Date Activated Date Inactivated Comments 02/07/2024 7:40 AM 02/07/2024 2:39 PM * Full Code Date Activated Date Inactivated Comments 12/26/2018 7:10 AM 12/26/2018 1:49 PM Care Teams Clinical Reimbursement Specialist Relationship Specialty Start Date End Date Bry Denny MD PCP - General 10/26/17 Cherri Boston NP [address] [place] [address] [place] [address] Nurse Practitioner Obstetrics and Gynecology 10/25/23
[2025-02-18 13:53] LABS: Hematocrit 36.4 % (37.0-47.0); Hemoglobin 11.7 g/dL (12.0-15.0)
[2025-02-18 14:04] LABS: Albumin Level 4.1 g/dL (3.5-5.1); Estimated Glomerular Filt Rate > 60; Glucose 91 mg/dL (65-110)
[2025-02-18 14:41] LABS: Hemoglobin A1C. 7.7 % (<5.7)
== END 2025-02-18 13:30 | disposition home or self-care (01) ==
LOC: ANHLAB 13:31
PROVIDERS: PCP Family Medicine; Visit Provider Orthopaedic Surgery
DX: M17.11 Unilateral primary osteoarthritis, right knee (principal); Z79.899 Other long term (current) drug therapy; E11.9 Type 2 diabetes mellitus without complications
CPT/HCPCS: 80307; 82040; 82565; 82947; 83036; 85014; 85018

== ENCOUNTER 2025-06-05 11:52 | Outpatient (CLI) | payer MEDICARE, SELFPAY ==
--- OUTSIDE RECORDS SUMMARY | 2025-06-05 12:38 | XMS_ITS | Clinical Summary ---
Author Organization [facility] Address [address] [place] [address] Phone Care Team Providers Care Tennis Court Attendant Name Role Phone Addison Aleman MD Unavailable [phone] Bry Denny MD Primary Care Provider [phone] Allergies Active Allergy Reactions Criticality Noted Date [...] by mouth daily. Active Insulin Infusion Pump ([employer] 670G INSULIN PUMP) Device by Does not [...] Comments Blood Pressure 113/94 08/08/2019 4:06 PM MATERNITY FLOOR SUPERVISOR Pulse 61 08/08/2019 6:15 PM MATERNITY FLOOR SUPERVISOR Temperature 36.4 C (97.5 F) 08/08/2019 4:06 PM MATERNITY FLOOR SUPERVISOR Respiratory Rate 16 08/08/2019 4:06 PM MATERNITY FLOOR SUPERVISOR Oxygen Saturation 99% 08/08/2019 6:15 PM MATERNITY FLOOR SUPERVISOR Inhaled Oxygen Concentration - - Weight 83.9 kg (185 lb) 08/08/2019 4:06 PM MATERNITY FLOOR SUPERVISOR Height 170.2 cm (5' 7) 08/08/2019 4:06 PM MATERNITY FLOOR SUPERVISOR Body Mass Index 28.98 08/08/2019 4:06 PM MATERNITY FLOOR SUPERVISOR Plan of Treatment Health Maintenance Due Date [...] 08/08/2020 08/08/2019, 07/26/2019, 07/04/2017, Additional history exists Influenza Immunization (#1) 2025 05/22/2018, 1 SARS-COV-2 Immunization ( season) 2025 11/24/2021, 09/11/2020, 08/21/2020 Hepatitis B Immunization Aged Out No longer [...] (COMPREHENSIVE METABOLIC PANEL) STAT 08/08/2019 4:18 PM MATERNITY FLOOR SUPERVISOR HEMOGLOBIN A1C W/ ESTIMATED GLUCOSE Routine 07/26/2019 5:50 AM MATERNITY FLOOR SUPERVISOR from Last 3 Months or Most Recently Relevant to Health Maintenance Results * (ABNORMAL) CMP (Comprehensive Metabolic Panel) (08/08/2019 4:18 PM MATERNITY FLOOR SUPERVISOR) SODIUM 135(L) 136 - 144 mmol/L 08/08/2019 4:54 PM MATERNITY FLOOR SUPERVISOR [facility] POTASSIUM 3.5 3.5 - 5.1 mmol/L 08/08/2019 4:54 PM [facility] CHLORIDE 96(L) 100 - 110 mmol/L 08/08/2019 4:54 PM [facility] CO2, VENOUS 27 22 - 32 mmol/L 08/08/2019 4:54 PM [facility] ANION GAP 15.5 8.0 - 20.0 mmol/L 08/08/2019 4:54 PM [facility] GLUCOSE 167(H) 70 - 99 mg/dL 08/08/2019 4:54 PM [facility] BUN 34(H) 8 - 23 mg/dL 08/08/2019 4:54 PM [facility] CREATININE, BLOOD 0.87 0.60 - 1.10 mg/dL 08/08/2019 4:54 PM [facility] BUN/CREATININE RATIO 39(H) 12 - 20 ratio 08/08/2019 4:54 PM [facility] TOTAL PROTEIN 9.3(H) 6.0 - 8.3 g/dL 08/08/2019 4:54 PM [facility] ALBUMIN 3.8 3.5 - 5.2 g/dL 08/08/2019 4:54 PM [facility] Comment: The colormetric methods used for the determination of Albumin may lead to falsely elevated test results in patients suffering from renal failure or insufficiency due to interference with other proteins. A/G RATIO 0.7(L) 1.0 - 2.0 08/08/2019 4:54 PM [facility] CALCIUM 9.6 8.9 - 10.3 mg/dL 08/08/2019 4:54 PM [facility] T BILI 0.3 <=1.2 mg/dL 08/08/2019 4:54 PM [facility] SGOT (AST) 23 <=32 U/L 08/08/2019 4:54 PM [facility] SGPT (ALT) 24 <=33 U/L 08/08/2019 4:54 PM [facility] ALKALINE PHOSPHATASE 147(H) 35 - 105 U/L 08/08/2019 4:54 PM MATERNITY FLOOR SUPERVISOR [facility] GFR, EST. NONAFRICAN >60 >=60 08/08/2019 4:54 PM MATERNITY FLOOR SUPERVISOR [facility] GFR, EST. >60 >=60 019 4:54 PM MATERNITY FLOOR SUPERVISOR [facility] Comment: Creatinine Clearance is the preferred criteria for selecting drug dose adjustments in renally impaired patients. The GFR is provided as additional pertinent clinical information. GFR is reported in mL/min/1.73 sq m. Blood specimen (specimen) Venous Catheter (IV) / Unknown 08/08/2019 4:18 PM MATERNITY FLOOR SUPERVISOR 08/08/2019 4:31 PM MATERNITY FLOOR SUPERVISOR us Wisam Santiago MD CHEMISTRY ORDERABLES Final Resu lt Performing Organization Address [facility] Co de Phone Number [facility] [place] [address] * (ABNORMAL) Hemoglobin A1C (07/26/2019 5:50 AM MATERNITY FLOOR SUPERVISOR) HGB-A1C 7.4(H) 4.0 - 6.0 % 07/26/2019 6:47 AM MATERNITY FLOOR SUPERVISOR [facility] Est Average Glucose 165.7 mg/dL 07/26/2019 6:47 AM MATERNITY FLOOR SUPERVISOR [facility] Blood specimen (specimen) Butterfly Puncture / Unknown 07/26/2019 5:50 AM MATERNITY FLOOR SUPERVISOR 07/26/2019 6:01 AM MATERNITY FLOOR SUPERVISOR Narrative [facility] - 07/26/2019 6:47 AM MATERNITY FLOOR SUPERVISOR HEMOGLOBIN A1C: DIABETIC PATIENTS: WELL-CONTROLLED: 6.2 - 7.0 INTERMEDIATE WELL-CONTROLLED: 7.0 - 9.0 POORLY-CONTROLLED: >9.0 us Amira Mccormick APRN, OIL HEATER OPERATOR CHEMISTRY ORDERABLE S Final Result Performing Organization Address [facility]/ZIP Co de Phone Number [facility] [place] [address] from Last 3 Months or Most Recently Relevant to Health Maintenance Insurance [address] GENERIC Advance Directives Documents on File Type Date Recorded Patient Teaching Fellow Expl anation Advance Care Planning Discussion 02/26/2018 [...] measures to stabilize the patient. Care Teams Tennis Court Attendant Relationship Specialty Start Date End Date Bry Denny MD [address] [place] [id number] PCP - General Family Medicine 11/14/18 Addison Aleman MD General Surgery 06/29/16
--- OUTSIDE RECORDS SUMMARY | 2025-06-05 12:38 | XMS_ITS | Clinical Summary ---
Author Organization [facility] Address [address] [place] [address] Care Team Providers Care Ceramic Engineering Professor Name Role Phone Bry Denny MD Primary Care Provider [phone] Source Comments [facility],non-owned Affiliates and Associated Physician Practices is amultiple site organization consisting of ambulatory clinics and hospital sitesin [place], [place], [place] and [place]. This disclosure is being madepursuant to the Care Everywhere program and may not contain all information available regarding this patient. Last updated 18.[facility] Allergies Active Allergy Reactions Criticality Noted Date Comments Nsaids 01/04/2015 GASTRIC BYPASS SURGERY. CANT TAKE ANYMORE Simvastatin Other Medium 02/11/2018 Muscle aches Sulfa Drugs Rash Low 11/10/2011 Topiramate Other Low 09/07/2020 Confusion; word-finding problems Medications * Be aware that medications may not be up to date on this document. Alwaysverify current medications with the patient. multivitamin daily (THERAGRAN) tabletIndicati ons:taking gummies cant swallow pills Take 1 (one) tablet by mouth daily with food Reasons: taking gummies cant swallow pills Active vitamin D (CHOLECACIFERO L) 5000 UNITS Take 3,000 Units by mouth once daily Active aspirin (ASPIRIN) 81 MG tablet Take 1 (one) tablet by mouth once daily Active insulin aspart (NOVOLOG) vial Use as directed with Insulin Pump - Max 60/day 8 Active sennosides (Ex-Lax Maxium Strength) 25 MG tablet Take 1 (one) tablet by mouth as needed Active lisinopril (PRINIVIL;ZEST RIL) 5 MG tablet 4 (four) tablets 2 times daily 1 Active BAQSIMI ONE PACK 3 MG/DOSE POWD 1 Active acetaminophen (TYLENOL) 325 MG tablet Take 500 mg by mouth Active calcium carbonate (Tums) 500 MG chew tablet Take 2 (two) tablets by mouth daily with food Active furosemide (LASIX) 20 MG tablet Take 1 (one) tablet by mouth once daily 1 Active diclofenac sodium (VOLTAREN) 1 % gel Apply 2 (two) g to affected area 4 times daily Active ezetimibe (Zetia) 10 MG tablet Take 1 (one) tablet by mouth once daily 2 Active butalbital-diana taminophen-caf feine (Fioricet) 50-325-40 MG tablet TAKE 1 TABLET BY MOUTH EVERY 4 HOURS NEEDED FOR HEADACHE OR MIGRAINE 30 tablet 3 Active hydroCHLOROthi azide (Hydrodiuril) 25 MG tablet Take 1 (one) tablet by mouth once daily 3 Active pyRIDostigmine (Mestinon) 60 MG tablet Take 1 (one) tablet by mouth 3 times daily 270 tablet 3 5 Active Wegovy 0.5 MG/0.5ML pen Inject 0.5 (one-half) mg subcutaneously every 7 days 5 Active Active Problems Problem Noted Date Diagnosed Date Myasthenia gravis status post thymectomy 020 Myasthenia gravis 09/02/2018 Chronic headaches 01/04/2015 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 Encounters Date Type Department Care Team Description 05/13/2025 8:25 AM CDT - 05/13/2025 11:59 PM CDT Hospital Encounter Infusion Services at [address] [address] Harjinder Reece MD Discharge Disposition: Home or Self Care 04/01/2025 8:29 AM CDT - 04/01/2025 11:59 PM CDT Hospital Encounter Infusion Services at [address] [address] Harjinder Reece MD Discharge Disposition: Home or Self Care from Last 3 Months Social History Tobacco Use Types Packs/Day Years Used Date Smoking Tobacco: Former Cigarettes Q uit: 06/13/1970 Smokeless Tobacco: Never Tobacco Cessation:Counseling Given: Not Answered Alcohol Use Standard Drinks/Week Comments Yes 0 (1 standard drink = 0.6 oz pur e alcohol) very rarely PHQ-2 Answer Date Recorded Patient Health Questionnaire-2 Score 1 05/13/2025 Comments No Sex and Gender Information Value Date Recorded Sex Assigned at Not on file Legal Sex Female 11:57 AM PRELOAD SUPERVISOR Gender Identity Not on file Sexual Orientation Not on file Last Filed Vital Signs Vital Sign Reading Time Taken Comments Blood Pressure 114/76 05/13/2025 11:00 AM CDT Pulse 59 05/13/2025 11:00 AM CDT Temperature 36.5 C (97.7 F) 05/13/2025 11:00 AM CDT Respiratory Rate 16 05/13/2025 11:00 AM CDT Oxygen Saturation 97% 05/13/2025 11:00 AM CDT Inhaled Oxygen Concentration - - Weight 83.9 kg (185 lb) 05/13/2025 8:35 AM CDT Height 168.9 cm (5' 6.5) 02/23/2025 10:29 AM CD T Body Mass Index 29.41 02/23/2025 10:29 AM CDT Plan of Treatment Upcoming Encounters Date Type Department Care Team (Late st Contact Info) Description 06/24/2025 8:30 AM PRELOAD SUPERVISOR Appointment Infusion Services at [address] [address] [place] [phone] [place] [address] [place] [phone] 08/25/2025 10:00 AM PRELOAD SUPERVISOR Office Visit [place] [phone] [facility] [address] [place] [address] [place] [address] [facility] [address] [place] [address] Health Maintenance Due Date Last Done [...] 06/14/2023 022, 04/26/2021, 04/19/2020, Additional history exists MEDICARE AWV CALENDAR YEAR 2024 COVID-19 VACCINE (3 - 2024- season) 2025 09/11/2020, 08/21/2020 INFLUENZA VACCINE (#1) 2025 , 05/22/2018, 05/24/2016, Additional history exists MAMMOGRAM 01/02/2027 01/02/2025, 12/18, 10/25/2023, Additional history exists SCREENING FOR DIABETES 04/27/2028 , 07/24/2023, 12/07/2021, Additional history exists LIPID TESTING 05/12/2030 05/12/2025, 01/18, 11/10/2024, Additional history exists Respiratory Syncytial Virus (RSV) [...] Associated Diagnosis Comments COMPREHENSIVE METABOLIC PANEL Routine 04/27/2025 10:51 AM CDT Myasthenia gravis status post thymectomy (HCC) from Last 3 Months Results * (ABNORMAL) COMPREHENSIVE METABOLIC PANEL (04/27/2025 10:51 AM CDT) Glucose 177(H) 70 - 99 mg/dL [facility] INSURANCE BILL BUN 27 8 - 27 mg/dL [facility] INSURANCE BILL Creatinine 0.69 0.57 - 1.00 mg/dL [facility] INSURANCE BILL eGFR by CKD-EPI 95 >59 mL/min/1.7 3 [facility] INSURANCE BILL BUN/Creatinine Ratio 39(H) 12 - 28 [facility] INSURANCE BILL Sodium 139 134 - 144 mmol/L [facility] INSURANCE BILL Potassium 3.5 3.5 - 5.2 mmol/L [facility] INSURANCE BILL Chloride 96 96 - 106 mmol/L [facility] INSURANCE BILL CO2 29 20 - 29 mmol/L [facility] INSURANCE BILL Calcium 10.0 8.7 - 10.3 mg/dL [facility] INSURANCE BILL Protein Total 7.2 6.0 - 8.5 g/dL [facility] INSURANCE BILL Albumin 4.2 3.9 - 4.9 g/dL [facility] INSURANCE BILL Globulin Total 3.0 1.5 - 4.5 g/dL [facility] INSURANCE BILL Bilirubin Total 0.4 0.0 - 1.2 mg/dL [facility] INSURANCE BILL Alkaline Phosphatase 103 44 - 121 IU/L [facility] INSURANCE BILL Comment: Effective May 04, 2025 Alkaline Phosphatase reference interval will be changing to: Age Male Female 0 - 5 days 47 - 127 47 - 127 6 - 10 days 29 - 242 29 - 242 11 - 20 days 109 - 357 109 - 357 21 - 30 days 94 - 494 94 - 494 1 - 2 months 149 - 539 149 - 539 3 - 6 months 131 - 452 131 - 452 7 - 11 months 117 - 401 117 - 401 12 months - 6 years 158 - 369 158 - 369 7 - 12 years 150 - 409 150 - 409 13 years 156 - 435 78 - 227 14 years 114 - 375 64 - 161 15 years 88 - 279 56 - 134 16 years 74 - 207 51 - 121 17 years 63 - 161 47 - 113 18 - 20 years 51 - 125 42 - 106 21 - 50 years 47 - 123 41 - 116 51 - 80 years 49 - 135 51 - 125 >80 years 48 - 129 48 - 129 AST 34 0 - 40 IU/L [facility] INSURANCE BILL ALT 22 0 - 32 IU/L [facility] INSURANCE BILL Blood BLOOD SPECIMEN / Unknown 04/27/2025 10:51 AM CDT 04/27/2025 Narrative [facility] INSURANCE BILL - 04/28/2025 9:11 AM CDT Performed at: 01 - [facility] [address] [place], [place] [id number] Talent Analyst: Stephen Nickerson PhD, Phone: [phone] Harjinder Reece MD LAB - CHEMISTRY ORDERABLES Final Result Performing Organization Address City/State/[facility] Co de Phone Number [facility] INSURANCE BILL [address] [place] [address] from Last 3 Months Insurance [employer] MEDICARE ADV [employer] * Guarantor: LORENZA MUNOZ Account Type Relation to Patient Date of Phone Billing Address Personal/Family 1955 [address] [place] [address] [employer] Advance Directives * Full Code (Latest Code Status on File) Date Activated Date Inactivated Comments 08/28/2019 12:32 PM 08/29/2019 12:13 PM Care Teams Ceramic Engineering Professor Relationship Specialty Start Date End Date Bry Denny MD [address] [place] [phone] PCP - General Family Medicine 11/20/17
--- OUTSIDE RECORDS SUMMARY | 2025-06-05 12:38 | XMS_ITS | Clinical Summary ---
Author Organization [facility] al Address [address] [place] [address] Care Team Providers Care Fruit Harvest Machine Operator Name Role Phone Bry Denny MD Primary Care Provider [phone] Cherri Boston SAND MIXER Unavailable [phone] Allergies Active Allergy Reactions Criticality Noted Date [...] check glucose 4x daily 400 each 3 014 Active hydroCHLOROthiaz therese (HYDRODIURIL) 25 mg tablet Take by mouth daily 018 Active multivitamin capsule Take 1 capsule by mouth daily Active acetaminophen (TYLENOL) 325 mg tablet Take 500 mg by mouth every 4 hours Active pyridostigmine (MESTINON) 60 mg tablet Take 1 tablet (60 mg total) by mouth 3 (three) times a day Active blood glucose diagnostic (CONTOUR NEXT TEST STRIPS) strip USE DIRECTED TO TEST BLOOD SUGAR 4 TIMES DAILY. 400 each 2 019 Active aspirin 81 mg enteric coated tablet Take 1 tablet (81 mg total) by mouth daily Active senna-docusate (PERICOLACE) 8.6-50 mg Take 1 tablet by mouth daily Active clobetasoL (TEMOVATE) 0.05 % ointment Apply thin layer 1-2 times daily to AA of scalp until improved 60 g 3 Active furosemide (LASIX) 20 mg tablet as needed Active calcium carbonate (TUMS) 500 mg calcium (200 mg of elemental calcium) chewable tablet Take by mouth daily 750mg Active butalbital-aceta minophen-caffein e (ESGIC) 50-325-40 mg per tablet Take 1 tablet by mouth every 4 (four) hours as needed Active cholecalciferol (VITAMIN D-3) 2000 unit capsuleIndicatio ns:Vitamin D Deficiency Take 1 capsule (2,000 Units total) by mouth daily 30 capsule 11 Active Additional Information Patient taking differently: 3,000 Unitsoral Daily,4000, Indications: Vitamin D Deficiency, Reported on 02/02/2025 lisinopriL (PRINIVIL,ZESTRI L) 5 mg tablet Active pen needle, diabetic 32 gauge x 5 needleIndication s:Type 1 diabetes mellitus with hyperglycemia (HCC) Use to inject insulin 5 times daily 200 each 4 Active insulin glargine 100 unit/mL (3 mL) pen for injectionIndicat ions:Type 1 diabetes mellitus with hyperglycemia (HCC) If off pump, inject 16 units under the skin daily. 3 mL Active glucagon (BAQSIMI) 3 mg/actuation spray,non-aeroso lIndications:Typ e 1 diabetes mellitus with hyperglycemia (HCC) Administer 1 spray (3 mg total) into one nostril once as needed (hypoglycemia) for up to 4 doses 1 each 3 Active insulin syringe-needle U-100 0.3 mL 31 gauge x 516 syringe Use to inject 1-4 times daily as directed when off pump 100 each 3 Active glucagon (Gvoke) 1 mg/0.2 mL solution Use as directed for severe hypoglycemia 0.2 mL 3 Active insulin NPH (HumuLIN N, NovoLIN N) 100 unit/mL vial for injection Inject 8 units twice daily when off pump - TDD 16 units 10 mL 11 024 2024 Active ezetimibe (ZETIA) 10 mg tablet Take 1 tablet (10 mg total) by mouth daily 90 tablet 3 024 2024 Active insulin aspart (NovoLOG) 100 unit/mL vial for injectionIndicat ions:Type 1 diabetes mellitus with hyperglycemia (HCC) USE DIRECTED WITH INSULIN PUMP - MAX 80 UNITS A DAY 90 mL 1 025 Active semaglutide (WEGOVY) 1 mg/0.5 mL auto-injectorInd ications:Obesity (BMI 30-39.9) Inject 1 mg under the skin every 7 days 2 mL 11 025 2025 Active semaglutide (WEGOVY) 0.5 mg/0.5 mL auto-injector Inject 0.5 mg under the skin every 7 days 2 mL 2 025 2024 Discontinued Active Problems Problem Noted Date Diagnosed Date Decreased libido 07/24/2023 Assessment & Plan (07/24/2023 11:46 AM WELL LOGGING MUD ANALYSIS CAPTAIN): Discussed possible causes of decreased sexual desire [...] phone. Assessment & Plan (07/22/2019 2:41 PM WELL LOGGING MUD ANALYSIS CAPTAIN): Reviewed calorie restriction based on BMR as [...] 12/19/2018 Assessment & Plan (07/22/2019 2:49 PM WELL LOGGING MUD ANALYSIS CAPTAIN): Will be having labs through endocrine. Assessment & Plan (05/07/2019 11:20 AM CDT): Reviewed Prentiss labs in chart. Assessment & Plan (12/19/2018 12:59 PM CDT): Reviewed recent labs with her. She was concerned about elevated PTH -- discussed mildly elevated and Ca WNL; discussed association of obesity and hyperparathyroidism/vit D deficiency. Personal history of colonic polyps 10/08/2018 Overview (10/08/2018): Added automatically from request for surgery [id number] Statin myopathy 09/17/2018 Obesity (BMI 30-39.9) 09/17/2018 Assessment & Plan (04/28/2020 9:44 PM CDT): Obesity is improving with treatment. Diet interventions: as noted. Regular aerobic exercise program discussed. Pharmacotherapy as ordered. Assessment & Plan (07/22/2019 2:48 PM WELL LOGGING MUD ANALYSIS CAPTAIN): Obesity is overall about the same.. Behavioral [...] 01/18 Assessment & Plan (07/22/2019 2:41 PM WELL LOGGING MUD ANALYSIS CAPTAIN): Briefly discussed option of GLP-1 RA. Assessment & Plan (12/19/2018 12:50 PM CDT): Discussed potential use of GLP-1 analog -- would discuss with library circulation clerk. Myasthenia gravis 12/03/2015 Overview (11/24/2016): Myasthenia gravis [...] Encounters Date Type Department Care Team Description 05/12/2025 9:30 AM CDT Office Visit [facility] Endocrinology Metabolism and Lipid 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); Insulin pump in place 05/12/2025 Documentation [facility] Endocrinology Metabolism and Lipid [address] [place] [address] Yarely Pantoja RN from Last 3 Months Immunizations Immunization Administration [...] Medical History Date Comments Hypertension Myasthenia gravis DM type 1 (diabetes mellitus, type 1) Insulin pump Family History Medical History Relation [...] of hypertension - Relation: Grandparent (Added by Conv) Obesity Other 3 Family history of obesity - (Added by Conv) Diabetes Other 4 Family history of diabetes mellitus - Relation: Grandparent (Added by Conv) Heart disease Other 5 Family history of cardiac disorder - (Added by Conv) Heart disease Other 6 Family history of cardiac disorder - Relation: Grandparent (Added by Conv) Stroke Other 7 Family history of [...] on file Legal Sex Female 11:13 PM WELL LOGGING MUD ANALYSIS CAPTAIN Gender Identity Not on file Sexual Orientation Not on file Obstetrics History Para Term AB IAB SAB Ectopic Multiple Livin g Live Births 6 6 6 1 Date Outcome GA Total Labor Labor/2nd/3rd Weight Sex Type Anes PTL Stacey A1 A5 Name Clin Term Term Term Term Term Term Last Filed Vital Signs Vital Sign Reading Time Taken Comments Blood Pressure 131/89 05/12/2025 9:28 AM CDT Pulse 60 05/12/2025 9:28 AM CDT Temperature 36.6 C (97.9 F) 05/12/2025 9:28 AM CDT Respiratory Rate 16 02/07/2024 10:2 8 AM CDT Oxygen Saturation 100% 07/29/2024 11: 35 AM WELL LOGGING MUD ANALYSIS CAPTAIN Inhaled Oxygen Concentration - - Weight 84.3 kg (185 lb 12.8 oz) 05/12/2025 9:28 AM CDT Height 168.9 cm (5' 6.5) 05/12/2025 9:28 AM CDT Body Mass Index 29.54 05/12/2025 9:28 AM CDT Plan of Treatment Health Maintenance Due Date Last Done Comments Hepatitis C Screening 1955 Hepatitis B Screening 11/26/1975 Pneumococcal vaccine 65+ (1 of 2 - PCV) 1976 Zoster Vaccine (1 of 2) 11/26/2007 Foot Exam 01/30/2018 01/30/2017 Dilated Eye Exam 05/03/2021 05/03/2020 Depression Screening 06/14/2023 06/14/2022, 04/26/2021, 04/19/2020 Well Visit 65+ 06/14/2023 06/14/2022, 02/2021, 04/19/2020, Additional history exists DTaP/Tdap/Td Vaccine (2 - Td or Tdap) 07/07/2023 07/07/2013, 02/10/1993 Osteoporosis Screening-Bone Density Scan 07/27/2024 07/27/2022 Fall Risk Assessment 02/06/2025 02/07/2024 Covid-19 Vaccine (3 - 2024-2 6 season) 2025 09/11/2020, 08/21/2020 Influenza Vaccine (#1) 2025 , 05/22/2018, 05/24/2016, Additional history exists Albumin Creatinine Ratio, Urine 07/29/2025 07/29/2024, 07/24/2023, 06/23/2022, Additional history exists Lipid Panel 07/29/2025 07/29/2024, 12/2022, 06/23/2022, Additional history exists TSH Level 07/29/2025 07/29/2024, 12/2022, 06/23/2022, Additional history exists eGFR 07/29/2025 07/29/2024, 12/2022, 09/27/2022, Additional history exists Hemoglobin A1C 11/09/2025 05/12/2025, 10/19, 05/13/2024, Additional history exists Breast Cancer Screening-Mammogram 01/02/2026 01/02/2025, 10/25/2023, 07/27/2022, Additional history exists Colon Cancer Screening-Colonoscopy 02/06/2034 02/07/2024, 12/26/2018, 12/31/2013 Colon Cancer Screening-CT Colonography Discontinued 02/07/2024, 12/26/2018, 12/31/2013 Colon Cancer Screening-DNA Stool Discontinued 02/07/2024, 12/26/2018, 12/31/2013 Colon Cancer Screening-FIT Discontinued 02/06, 12/26/2018, 12/31/2013 Colon Cancer Screening-Sigmoidoscopy Discontinued 02/07/2024, 12/26/2018, 12/31/2013 Medical Devices Implanted Type Area High School Admissions Representative Device Identifier Shelf Expiration Date Model / Serial / Lot Bard Peripheral Vascular Ultraclip Bard 17ga 10cm 2 Trigger Permanent Ultrasound [id number] - [id number] - [id number] Implanted:Qty: 1 on 09/27/2022 by Macario Latham MD at [facility] Breast Left: Breast Bard Peripheral Vascular 04/16/2025 [id number] / [id number] / [id number] Description:Implanted Left B reast 12:00 area 2 cmfn Lead (Rv)-01/26/2020 Implanted:03/2020 by Shen Ordonez MD (Quantity not on file) Lead Heart Medtronic Cardiac Rhythm Mgmt 5076-52 / [id number] / Lead (Ra)-01/26/2020 Implanted:03/2020 by Shen Ordonez MD (Quantity not on file) Lead Heart Medtronic Cardiac Rhythm Mgmt 5076-45 / [id number] / Pacemaker-2019 Implanted:06/0 03/2020 by Shen Ordonez MD (Quantity not on file) Pacemaker Chest Medtronic Cardiac Rhythm Mgmt MANDO [id number] / [id number] / Procedures Procedure Name Priority Date/Time Associated Diagnosis Comments POCT HEMOGLOBIN A1C Routine 05/12/2025 9 :34 AM CDT Type 1 diabetes mellitus with hyperglycemia (HCC) POCT GLUCOSE 53496 Routine 05/12/2025 9: 33 AM CDT Type 1 diabetes mellitus with hyperglycemia (HCC) SCREENING MAMMOGRAM BILATERAL W BENEDICT Schedule Routine, Read Routine (OP Routine) 01/02/2025 8:55 AM CDT Screening mammogram, encounter for COMPREHENSIVE METABOLIC PANEL Routine 07/29/2024 1:28 PM WELL LOGGING MUD ANALYSIS CAPTAIN Type 1 diabetes mellitus with hyperglycemia (HCC) Primary hypertension Mixed diabetic hyperlipidemia associated with type 1 diabetes mellitus (HCC) Insulin pump in place H/O gastric bypass LIPID PANEL Routine 07/29/2024 1:28 PM WELL LOGGING MUD ANALYSIS CAPTAIN Type 1 diabetes mellitus with hyperglycemia (HCC) Primary hypertension Mixed diabetic hyperlipidemia associated with type 1 diabetes mellitus (HCC) Insulin pump in place H/O gastric bypass ALBUMIN CREATININE RATIO, URINE Routine 07/29/2024 1:28 PM WELL LOGGING MUD ANALYSIS CAPTAIN Type 1 diabetes mellitus with hyperglycemia (HCC) Primary hypertension Mixed diabetic hyperlipidemia associated with type 1 diabetes mellitus (HCC) Insulin pump in place H/O gastric bypass THYROID FUNCTION CASCADE Routine 07/29/2024 1:28 PM WELL LOGGING MUD ANALYSIS CAPTAIN Type 1 diabetes mellitus with hyperglycemia (HCC) Primary hypertension Mixed diabetic hyperlipidemia associated with type 1 diabetes mellitus (HCC) Insulin pump in place H/O gastric bypass COLONOSCOPY 02/07/2024 9:19 AM CDT DEXA AXIAL SKELETON BONE DENSITY 1 OR MORE SITES Schedule Routine, Read Routine (OP Routine) 07/27/2022 10:09 AM WELL LOGGING MUD ANALYSIS CAPTAIN Screening for osteoporosis DIABETIC EYE EXAM Routine 05/03/2020 DIABETES FOOT EXAM Routine 01/30/2017 from Last 3 Months or Most Recently Relevant to Health Maintenance Results * (ABNORMAL) POCT hemoglobin A1c (05/12/2025 9:34 AM CDT) Hemoglobin A1C, POC 7.4(A) 4.0 - 5.6 % Blood 05/12/2025 9:34 AM CDT Luciana Thala [facility] POINT OF CARE TEST ORDERABLES Final Result * POCT glucose (05/12/2025 9:33 AM CDT) Glucose Blood, POC 110 Normal Fasting 70 - 100, Random <200 mg/dL Blood 05/12/2025 9:33 AM CDT Luciana Jolley [facility] POINT OF CARE TEST ORDERABLES Final Result * Screening Mammogram Bilateral W [...] IMG MAMMO PROCEDURES Fi nal Result * Thyroid Function [place] (07/29/2024 1:28 PM WELL LOGGING MUD ANALYSIS CAPTAIN) Pathologist [facility] TSH 1.26 0.40 - 4.50 mIU/L [facility] Comment: Your request to have a duplicate copy faxed has been acknowledged. Queued to: [id number] Blood 07/29/2024 1:28 PM WELL LOGGING MUD ANALYSIS CAPTAIN 07/29/2024 1:28 PM WELL LOGGING MUD ANALYSIS CAPTAIN Narrative [facility] - 07/30/2024 5:24 AM WELL LOGGING MUD ANALYSIS CAPTAIN FASTING:YES FASTING: YES us Andie Dorantes MD LAB BLOOD ORDERABLES Final Re sult Performing Organization Address [facility] Co de Phone Number [facility] [address] [place] [address] * Albumin Creatinine Ratio, Urine (07/29/2024 1:28 PM WELL LOGGING MUD ANALYSIS CAPTAIN) Pathologist [facility] Creatinine, ur 47 20 - 275 mg/dL [...] a diagnostic category. Urine 07/29/2024 1:28 PM WELL LOGGING MUD ANALYSIS CAPTAIN 07/29/2024 1:28 PM WELL LOGGING MUD ANALYSIS CAPTAIN Narrative [facility] - 07/30/2024 5:24 AM WELL LOGGING MUD ANALYSIS CAPTAIN FASTING:YES FASTING: YES us Andie Dorantes MD LAB URINE ORDERABLES Final Re sult Performing Organization Address [facility] Co de Phone Number [facility] [address] [place] [address] * Lipid panel (07/29/2024 1:28 PM WELL LOGGING MUD ANALYSIS CAPTAIN) Cholesterol 157 <200 mg/dL [facility] [...] LDL-C. Juni SS et al. JOHNNY. 2013;310(19): 3717-6868 (http://education.[employer]/faq/ATD138) Chol/HDL ratio 2.0 <5.0 (calc) [facility] Non-HDL, (LDL+VLDL) 79 <130 mg/dL (calc) [facility] Comment: For patients with diabetes plus 1 major ASCVD risk factor, treating to a non-HDL-C goal of <100 mg/dL (LDL-C of <70 mg/dL) is considered a therapeutic option. Blood 07/29/2024 1:28 PM WELL LOGGING MUD ANALYSIS CAPTAIN 07/29/2024 1:28 PM WELL LOGGING MUD ANALYSIS CAPTAIN Narrative [facility] - 07/30/2024 5:24 AM WELL LOGGING MUD ANALYSIS CAPTAIN FASTING:YES FASTING: YES us Andie Dorantes MD LAB BLOOD ORDERABLES Final Re sult [facility] [address] [place] [address] * (ABNORMAL) Comprehensive metabolic panel (07/29/2024 1:28 PM WELL LOGGING MUD ANALYSIS CAPTAIN) Glucose 108(H) 65 - 99 mg/dL [facility] [...] [facility] Blood 07/29/2024 1:28 PM WELL LOGGING MUD ANALYSIS CAPTAIN 07/29/2024 1:28 PM WELL LOGGING MUD ANALYSIS CAPTAIN Narrative [facility] - 07/30/2024 5:24 AM WELL LOGGING MUD ANALYSIS CAPTAIN FASTING:YES FASTING: YES us Andie Dorantes MD LAB BLOOD ORDERABLES Final Re sult [facility] [address] [place] [address] * Colonoscopy (02/07/2024 9:19 AM CDT) Anatomical Region Laterality Modality Other Narrative Procedure Note Andrey Arango MD - 02/07/2024 9:19 AM CDT ENDOSCOPY LAB Patient Name: Keerthi Aguilar Procedure Date: 02/07/2024 9:19 AM Date of : 1955 Admit Type: Outpatient Age: 68 Gender: Female Attending MD: Melly Arango M.D. Room: [facility] ENDOSCOPY ROOM 03 Note Status: Finalized [...] The scope was passed under direct vision.The [id number] was introduced through the anusand advanced to [...] 0 Note Initiated On: 02/07/2024 9:19 AM Andrey Arango MD ENDOSCOPY PROCEDURES Final Result * Dexa Axial Skeleton Bone Density 1 or 2 Site (07/27/2022 10:09 AM WELL LOGGING MUD ANALYSIS CAPTAIN) Anatomical Region Laterality Modality Body N/A Other 07/27/2022 8:33 PM WELL LOGGING MUD ANALYSIS CAPTAIN Narrative 07/27/2022 8:34 PM WELL LOGGING MUD ANALYSIS CAPTAIN EXAM DESCRIPTION: DEXA AXIAL SKELETON BONE DENSITY 1 OR MORE SITES REASON FOR STUDY: 66 y/o year old F with given history of screening. Postmenopausal High School Admissions Representative/Model: [place] Zhangmen (S/N [id number]) CLINICAL INFORMATION: Current height: 66.5 inches Maximum [...] Danilo Winston M.D. MF: OSMIN Report ID: [id number] Reading Location: [id number] [facility] Note Danilo Winston MD - 07/27/2022 EXAM DESCRIPTION: DEXA AXIAL SKELETON BONE DENSITY 1 OR MORE SITES REASON FOR STUDY: 66 y/o year old F with given history ofscreening. Postmenopausal High School Admissions Representative/Model: [place] Zhangmen (S/N [id number]) CLINICAL INFORMATION: Current height: 66.5 inches Maximum [...] 8:34 PM - Electronically signed by Danilo SOLORIO: OSMIN Report ID: [id number] Reading Location: [place] [address] Louise Wu SAND MIXER IMG DXA PROCEDURES Final Result * Diabetic Eye Exam (05/03/2020) Historical Provider HEALTH MAINTENANCE Final Result * DIABETES FOOT EXAM (01/30/2017) Diabetic Foot Exam Normal Comment:Dryness noted b/l us Historical Provider HEALTH MAINTENANCE Final Result from Last 3 Months or Most Recently Relevant to Health Maintenance Insurance [employer] [facility] [id number] [facility]LY [facility] MEDICARE FORMERLY [facility] MEDICARE Advance Directives For more information, please contact: [phone] * Full Code (Latest Code Status on File) Date Activated Date Inactivated Comments 02/07/2024 7:40 AM 02/07/2024 2:39 PM * Full Code Date Activated Date Inactivated Comments 12/26/2018 7:10 AM 12/26/2018 1:49 PM Care Teams 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
--- OUTSIDE RECORDS SUMMARY | 2025-06-05 12:38 | XMS_ITS | Clinical Summary ---
Author Organization [facility] Address [address] [place] [address] Care Team Providers Care Instructional Systems Designer Name Role Phone Bry Denny MD Primary Care Provider [phone] Social History Tobacco Use Types Packs/Day Years [...] 07/07/2023 07/07/2013, 02/10/1993 COVID-19 Vaccine (3 - 2024-2 6 season) 2025 09/11/2020, 08/21/2020 Influenza Adult (#1) 2025 05/22/2018, 05/24/2016, 05/31/2011 RSV Immunization or 60+ Years (1 - 1-dose 75+ series) 2032 Hepatitis A Vaccines Aged Out No long er eligible based on patient's age to complete this topic Meningococcal B Vaccine Aged Out No l onger eligible based on patient's age to complete this topic Meningococcal Vaccine Aged Out No kandi concepcion eligible based on patient's age to complete this topic RSV Immunizations Under 20 Months Aged Out No longer eligible b ased on patient's age to complete this topic Medical Devices Implanted Type Area Skin Care Consultant Device Identifier Shelf Expiration Date Model / Serial / Lot Lead-03/25/2020 Implanted:Qty: 1 on 03/25/2020 by Evita Ordonez MD Lead Implant MEDTR[employer]IC CARDIAC RHYTHM AND HEART FAILURE - [facility] 5076-45 / / Lead-03/25/2020 Implanted:Qty: 1 on 03/25/2020 by Evita Ordonez MD Lead Implant [employer]TR[employer]IC CARDIAC RHYTHM AND HEART FAILURE - [facility] 5076-52 / / Pacemaker- 020 Implanted:Qty: 1 on 03/25/2020 by Evita Ordonez MD Pacemaker Chest [employer] CARDIAC RHYTHM AND HEART FAILURE - [facility] [id number] / [id number] / Description:MRI Conditional under following conditions: [...] or above C7, Supine or Prone Insurance [employer] OPEN [facility] Care Teams Instructional Systems Designer Relationship Specialty Start Date End Date Bry Denny MD PCP - General FAMILY PRACTICE 11/18/20
--- NOTE | 2025-06-05 12:59 | ECG_ITS ---
Test Date: 2025-06-05 13:11:02 Measurements Intervals [place] Rate: 59 P: 148 NE: 272 QRS: -4 QRSD: 106 T: 11 QT: 441 QTc: 440 Interpretive Statements ELECTRONIC ATRIAL PACEMAKER LOW QRS VOLTAGE IN PRECORDIAL LEADS ANTEROSEPTAL INFARCT, AGE INDETERMINATE BORDERLINE ST-T WAVE ABNORMALITY- INF/HIGH LAT LEADS BASELINE ARTIFACT- I, II, III, AVR ABNORMAL ECG No previous ECG available for comparison Electronically Signed On 06-05-2025 15:19:39 CDT by Horace John D.O.
[2025-06-05 13:23] LABS: Hematocrit 36.6 % (37.0-47.0); Hemoglobin 11.5 g/dL (12.0-15.0); Immature Granulocyte Percent A 0.2 % (0-0.5); Lymphocytes Absolute Auto 1.17 K/mm3 (0.9-3.2); Mean Corpuscular HGB Conc 31.4 g/dl (32-36); Mean Corpuscular Hemoglobin 26.9 pg (26-34); Mean Corpuscular Volume 85.7 fl (80-100); Nucleated Red Blood Cells Absolute Auto 0.000 K/mm3 (0.0-0.012); Nucleated Red Blood Cells Perc 0.0 % (0.0-0.2); Platelet Count Result 315 k/mm3 (150-375); Red Blood Count 4.27 M/mm3 (4.2-5.4); White Blood Count 4.0 K/mm3 (4.5-10.0)
[2025-06-05 13:38] LABS: Albumin Level 4.1 g/dL (3.5-5.1)
[2025-06-05 13:41] LABS: Anion Gap 5 mmol/L (4-12); Blood Urea Nitrogen 26 mg/dL (7-17); Calcium 9.2 mg/dL (8.4-10.2); Carbon Dioxide 33 mmol/L (22-30); Chloride 99 mmol/L (98-107); Estimated Glomerular Filt Rate > 60; Glucose 98 mg/dL (65-110); Potassium 3.1 mmol/L (3.4-5.0); Sodium 137 mmol/L (137-145)
[2025-06-05 14:32] LABS: MRSA (PCR) NOT DETECTED (NOT DETECTE)
[2025-06-05 14:56] LABS: Hemoglobin A1C 7.2 % (<5.7)
== END 2025-06-05 11:53 | disposition home or self-care (01) ==
LOC: ANHSURGERY 11:58
PROVIDERS: Anesthesiology; Visit Provider Orthopaedic Surgery
DX: Z01.818 Encounter for other preprocedural examination (principal); M17.11 Unilateral primary osteoarthritis, right knee; E11.9 Type 2 diabetes mellitus without complications; R94.31 Abnormal electrocardiogram [ECG] [EKG]
CPT/HCPCS: 36415; 80048; 80307; 82040; 83036; 85025; 87641; 93005

== ENCOUNTER 2025-07-02 02:16 | Day surgery (SDC) | payer MEDICARE, SELFPAY ==
--- NOTE | 2025-06-05 11:56 | PC.NURSE ---
[facility] has started construction of its new state of the art ER which will open Spring 2026. With this, we anticipate parking may be a challenge for some our surgical patients and families. Parking spaces are limited but are available for all Surgical, obstetrics, and ER patients sharing this lot. If you arrive and find you are having a hard time finding a parking space, please note that we understand the challenges, please drive around the hospital and park near Hospital Entrance 1. When you enter this entrance, you can ask a volunteer to direct or take you back to the surgical waiting area to check in. We appreciate everyone?s understanding of these expected challenges while we build for your future. Report to the Outpatient Waiting Room, entrance under the green pavilion located off [address], at time _6 AM on date _07/02/25 . Planned Procedure Time: __7:30AM .? Time changes happen often and if your time is changed the preop area will call you the afternoon before. - You and your visitor will be asked to self-screen and do not enter if you have any COVID symptoms. Please call surgeon if you need to reschedule. - A mask is optional within the hospital at this time. Patients may have clear liquids (water, carbonated beverages, clear teas, apple juice) until 3 hours prior to surgery ( 4:30 AM) with a maximum of 20 ounces. - No food from midnight until time of surgery and no smoking, or chewing tobacco (or any form of nicotine). No chewing gum, candy or mints. - Take only the following medications with a SIP of water on the morning of surgery: ___[place] DO NOT STOP ANY OF YOUR OTHER PRESCRIPTION MEDICATIONS PRIOR TO SURGERY EXCEPT THE FOLLOWING Hold all vitamins and supplements for 3 days per anesthesiologist.LAST DOSE 06/28/25 Medications to discontinue per physician ASPIRIN HOLD 7 DAYS PRE OP PER DR MCPHERSON__. PT STATES HOLD WEGOVY 10 DAYS PRIOR TO SURGERY PER DR MCPHERSON 06/21/25 Date to take last dose___06/24/25 Please no make-up, nail turkmen, hairspray, perfume, deodorant, or body powder the day of surgery.? No jewelry (including any body piercings) or valuables the day of surgery, leave them at home.? Please take a shower or bath the night before, or the morning of, surgery with an antibacterial soap.? Wear comfortable, loose fitting clothing.? Children are encouraged to wear pajamas. - Jewelry must be removed prior to entering the operating room.? Rings and piercings that are not removed may be cut off. - The hospital will not accept responsibility for valuables.? - Please leave all valuables, including medications, at home the day of surgery. If you are going home after surgery, a licensed school bus driver/teacher assistant must drive you home.? - NO public transportation without another adult if you receive anesthesia. - We recommend that an adult stay with you for 24 hours following discharge. - We also recommend that you do not drive, make important decision, drink alcoholic beverages, or take any drugs that were not prescribed by your health care provider for at least 24 hours after your discharge time. For Pediatric surgeries, we recommend two adults accompany the child home. Follow any additional instructions given to you from your surgeon. VERBAL AND WRITTEN instructions given to __PATIENT and asked if any additional questions and then verbalized understanding. Patient advised to call surgeon office or pre surgery nurse liaison [phone] if any additional questions.
[2025-06-05 12:01] VITALS: BMI 30.1
[2025-06-05 13:06] VITALS: BP 136/88; PULSE 60; RESP 18; TEMP 36.7; O2SAT 100
[2025-07-02] VITALS (10 sets, daily range): BP systolic 118–160; BP diastolic 69–99; PULSE 60–73; RESP 6–18; TEMP 36.1–36.5; O2SAT 95–100
--- NOTE | ~2025-07-02 | XR_ITS ---
EXAMINATION: [id number], 07/02/2025 10:25 MANAGER OF PMO HISTORY: POST OP RIGHT TKA COMPARISON: No comparisons available. Findings: No acute fracture or malalignment. Arthroplasty intact Soft tissues unremarkable. Impression: No acute fracture or malalignment. Reviewed, dictated and finalized at location P. GER OF PMO Impression: No acute fracture or malalignment.
--- OUTSIDE RECORDS SUMMARY | 2025-07-02 02:19 | XMS_ITS | Clinical Summary ---
Author Organization [facility] Address [address] [place] [address] Care Team Providers Care Department Of Sociology Chair Name Role Phone Bry Denny MD Primary Care Provider [phone] Social History Tobacco Use Types Packs/Day Years [...] this topic Medical Devices Implanted Type Area Farm Mechanic Apprentice Device Identifier Shelf Expiration Date Model / Serial / Lot Lead-03/25/2020 Implanted:Qty: 1 on 03/25/2020 by Evita Ordonez MD Lead Implant [employer]IC CARDIAC RHYTHM AND HEART FAILURE - [facility] 5076-45 / / Lead-03/25/2020 Implanted:Qty: 1 on 03/25/2020 by Evita Ordonez MD Lead Implant [employer]IC CARDIAC RHYTHM AND HEART FAILURE - [facility] 5076-52 / / Pacemaker- 020 Implanted:Qty: 1 on 03/25/2020 by Evita Ordonez MD Pacemaker Chest [employer] CARDIAC RHYTHM AND HEART FAILURE - [facility] [id number] / [id number] / Description:MRI Conditional under following conditions: [...] or above C7, Supine or Prone Insurance [employer] OPEN ACCESS [facility] Care Teams Department Of Sociology Chair Relationship Specialty Start Date End Date Bry Denny MD PCP - General FAMILY PRACTICE 11/18/20
--- OUTSIDE RECORDS SUMMARY | 2025-07-02 02:19 | XMS_ITS | Clinical Summary ---
Author Organization [facility] Address [address] [place] [address] Phone Care Team Providers Care Cable Installation Manager Name Role Phone Addison Aleman MD Unavailable [phone] Bry Denny MD Primary Care Provider [...] by mouth daily. Active Insulin Infusion Pump ([employer] 670G INSULIN PUMP) Device by Does not [...] Years Used Date Smoking Tobacco: Former Cigarettes 0 Q uit: 08/20/1977 Smokeless Tobacco: Never Alcohol [...] Comments Blood Pressure 113/94 08/08/2019 4:06 PM TANNING SALON ATTENDANT Pulse 61 08/08/2019 6:15 PM TANNING SALON ATTENDANT Temperature 36.4 C (97.5 F) 08/08/2019 4:06 PM TANNING SALON ATTENDANT Respiratory Rate 16 08/08/2019 4:06 PM TANNING SALON ATTENDANT Oxygen Saturation 99% 08/08/2019 6:15 PM TANNING SALON ATTENDANT Inhaled Oxygen Concentration - - Weight 83.9 kg (185 lb) 08/08/2019 4:06 PM TANNING SALON ATTENDANT Height 170.2 cm (5' 7) 08/08/2019 4:06 PM TANNING SALON ATTENDANT Body Mass Index 28.98 08/08/2019 4:06 PM TANNING SALON ATTENDANT Plan of Treatment Health Maintenance Due Date Last Done Comments Diabetes: Eye Exam 1955 Diabetes: Foot Exam 1955 Hepatitis C Virus (HCV) Screening 1955 TdaP Immunization 1955 Pneumococcal Immunization (50+ years) (1 of 2 - PCV) 1976 Cologuard 2002 Colonoscopy 2002 Colorectal Cancer Screening 2002 Immunochemical Fecal Occult Blood 2002 Respiratory Syncytial Virus (RSV) Immunization (Adult) (1 - Risk 50-74 years 1-dose series) 11/26/2007 Zoster Immunization (1 of 2) 11/26/2007 Diabetes: Hemoglobin A1c 01/25/2020 019, 07/10/2019, 11/28/2018, [...] (COMPREHENSIVE METABOLIC PANEL) STAT 08/08/2019 4:18 PM TANNING SALON ATTENDANT HEMOGLOBIN A1C W/ ESTIMATED GLUCOSE Routine 07/26/2019 5:50 AM TANNING SALON ATTENDANT from Last 3 Months or Most Recently Relevant to Health Maintenance Results * (ABNORMAL) CMP (Comprehensive Metabolic Panel) (08/08/2019 4:18 PM TANNING SALON ATTENDANT) SODIUM 135(L) 136 - 144 mmol/L 08/08/2019 4:54 PM TANNING SALON ATTENDANT [facility] POTASSIUM 3.5 3.5 - 5.1 mmol/L 08/08/2019 4:54 PM [facility] CHLORIDE 96(L) 100 - 110 mmol/L 08/08/2019 4:54 PM [facility] CO2, VENOUS 27 22 - 32 mmol/L 08/08/2019 4:54 PM [facility] ANION GAP 15.5 8.0 - 20.0 mmol/L 08/08/2019 4:54 PM [facility] GLUCOSE 167(H) 70 - 99 mg/dL 08/08/2019 4:54 PM [facility] BUN 34(H) 8 - 23 mg/dL 08/08/2019 4:54 PM [facility] CREATININE, BLOOD 0.87 0.60 - 1.10 mg/dL 08/08/2019 4:54 PM [facility] BUN/CREATININE RATIO 39(H) 12 - 20 ratio 08/08/2019 4:54 PM [facility] TOTAL PROTEIN 9.3(H) 6.0 - 8.3 g/dL 08/08/2019 4:54 PM [facility] ALBUMIN 3.8 3.5 - 5.2 g/dL 08/08/2019 4:54 PM [facility] Comment: The colormetric methods used for the determination of Albumin may lead to falsely elevated test results in patients suffering from renal failure or insufficiency due to interference with other proteins. A/G RATIO 0.7(L) 1.0 - 2.0 08/08/2019 4:54 PM [facility] CALCIUM 9.6 8.9 - 10.3 mg/dL 08/08/2019 4:54 PM [facility] T BILI 0.3 <=1.2 mg/dL 08/08/2019 4:54 PM [facility] SGOT (AST) 23 <=32 U/L 08/08/2019 4:54 PM [facility] SGPT (ALT) 24 <=33 U/L 08/08/2019 4:54 PM [facility] ALKALINE PHOSPHATASE 147(H) 35 - 105 U/L 08/08/2019 4:54 PM TANNING SALON ATTENDANT [facility] GFR, EST. NONAFRICAN >60 >=60 08/08/2019 4:54 PM TANNING SALON ATTENDANT [facility] GFR, EST. >60 >=60 019 4:54 PM TANNING SALON ATTENDANT [facility] Comment: Creatinine Clearance is the preferred criteria for selecting drug dose adjustments in renally impaired patients. The GFR is provided as additional pertinent clinical information. GFR is reported in mL/min/1.73 sq m. Blood specimen (specimen) Venous Catheter (IV) / Unknown 08/08/2019 4:18 PM TANNING SALON ATTENDANT 08/08/2019 4:31 PM TANNING SALON ATTENDANT Wisam Santiago MD CHEMISTRY ORDERABLES Final Resu lt Performing Organization Address [facility] Co de Phone Number [facility] [place] [address] * (ABNORMAL) Hemoglobin A1C (07/26/2019 5:50 AM TANNING SALON ATTENDANT) HGB-A1C 7.4(H) 4.0 - 6.0 % 07/26/2019 6:47 AM TANNING SALON ATTENDANT [facility] Est Average Glucose 165.7 mg/dL 07/26/2019 6:47 AM TANNING SALON ATTENDANT [facility] Blood specimen (specimen) Butterfly Puncture / Unknown 07/26/2019 5:50 AM TANNING SALON ATTENDANT 07/26/2019 6:01 AM TANNING SALON ATTENDANT Narrative [facility] - 07/26/2019 6:47 AM TANNING SALON ATTENDANT HEMOGLOBIN A1C: DIABETIC PATIENTS: WELL-CONTROLLED: 6.2 - 7.0 INTERMEDIATE WELL-CONTROLLED: 7.0 - 9.0 POORLY-CONTROLLED: >9.0 us Amira Mccormick APRN, EDUCATION AND TRAINING COORDINATOR CHEMISTRY ORDERABLE S Final Result Performing Organization Address [facility]/ZIP Co de Phone Number [facility] [place] [address] from Last 3 Months or Most Recently Relevant to Health Maintenance Insurance [address] GENERIC Advance Directives Documents on File Type Date Recorded Patient Program Director/Music Director Expl anation Advance Care Planning Discussion 02/26/2018 [...] measures to stabilize the patient. Care Teams Cable Installation Manager Relationship Specialty Start Date End Date Bry Denny MD [address] [place] [id number] PCP - General Family Medicine 11/14/18 Addison Aleman MD General Surgery 06/29/16
--- OUTSIDE RECORDS SUMMARY | 2025-07-02 02:19 | XMS_ITS | Clinical Summary ---
Author Organization [facility] Address [address] [place] [address] Care Team Providers Care Help Desk Specialist Name Role Phone Bry Denny MD Primary Care Provider [phone] Cherri Boston POWERHOUSE MECHANIC HELPER Unavailable [phone] Allergies Active Allergy Reactions Criticality Noted Date [...] mL 1 01/03/20 25 Active semaglutide (WEGOVY) 1 mg/0.5 mL auto-injectorIndi cations:Obesity (BMI 30-39.9) Inject 1 mg under the skin every 7 days 2 mL 11 05/12/20 25 026 Active Active Problems Problem Noted Date Diagnosed Date Decreased libido 07/24/2023 Assessment & Plan (07/24/2023 11:46 AM SEALING AND CANCELING MACHINE OPERATOR): Discussed possible causes of decreased [...] phone. Assessment & Plan (07/22/2019 2:41 PM SEALING AND CANCELING MACHINE OPERATOR): Reviewed calorie restriction based on [...] 12/19/2018 Assessment & Plan (07/22/2019 2:49 PM SEALING AND CANCELING MACHINE OPERATOR): Will be having labs through endocrine. Assessment & Plan (05/07/2019 11:20 AM CDT): Reviewed [place] labs in chart. Assessment & Plan (12/19/2018 12:59 PM CDT): Reviewed recent labs with her. She was concerned about elevated PTH -- discussed mildly elevated and Ca WNL; discussed association of obesity and hyperparathyroidism/vit D deficiency. Personal history of colonic polyps 10/08/2018 Overview (10/08/2018): Added automatically from request for surgery [id number] Statin myopathy 09/17/2018 Obesity (BMI 30-39.9) 09/17/2018 Assessment & Plan (04/28/2020 9:44 PM CDT): Obesity is improving with treatment. Diet interventions: as noted. Regular aerobic exercise program discussed. Pharmacotherapy as ordered. Assessment & Plan (07/22/2019 2:48 PM SEALING AND CANCELING MACHINE OPERATOR): Obesity is overall about the [...] 01/18 Assessment & Plan (07/22/2019 2:41 PM SEALING AND CANCELING MACHINE OPERATOR): Briefly discussed option of GLP-1 RA. Assessment & Plan (12/19/2018 12:50 PM CDT): Discussed potential use of GLP-1 analog -- would discuss with transportation job titles. Myasthenia gravis 12/03/2015 Overview (11/24/2016): Myasthenia gravis [...] Encounters Date Type Department Care Team Description 06/29/2025 Telephone [facility]id [address] [facility] [address] [place] [address] [place] [address] Luciana Pinto PA 05/12/2025 9:30 AM CDT Office Visit [facility] [place] [facility]id [address] [facility] [address] [place] [address] [place] [address] Luciana Pinto PA Type 1 diabetes mellitus with hyperglycemia (HCC) (Primary Dx); Primary hypertension; Obesity (BMI 30-39.9); H/O gastric bypass; Mixed diabetic hyperlipidemia associated with type 1 diabetes mellitus; alf (current) use of insulin (HCC); Insulin pump in place 05/12/2025 Documentation [facility] [place] [facility] and Lipid [address] [facility] [address] [place] [address] Yarely Pantoja RN from Last [...] on file Legal Sex Female 11:13 PM SEALING AND CANCELING MACHINE OPERATOR Gender Identity Not on file [...] Oxygen Saturation 100% 07/29/2024 11: 35 AM SEALING AND CANCELING MACHINE OPERATOR Inhaled Oxygen Concentration - - Weight 84.3 [...] 12/26/2018, 12/31/2013 Medical Devices Implanted Type Area Lone Lead Lineman Device Identifier Shelf Expiration Date Model / Serial / Lot Bard Peripheral Vascular Ultraclip Bard 17ga 10cm 2 Trigger Permanent Ultrasound [id number] - [id number] - [id number] Implanted:Qty: 1 on 09/27/2022 by Macario Latham MD at [facility] Breast Left: Breast Bard Peripheral Vascular 04/16/2025 [id number] / [id number] / [id number] Description:Implanted Left B reast 12:00 area 2 cmfn Lead (Rv)-01/26/2020 Implanted:03/2020 by Shen Ordonez MD (Quantity not on file) Lead Heart Medtronic Cardiac Rhythm Mgmt 5076-52 / [id number] / Lead (Ra)-01/26/2020 Implanted:03/2020 by Shen Ordonez MD (Quantity not on file) Lead Heart Medtronic Cardiac Rhythm Mgmt 5076-45 / [id number] / Pacemaker-2019 Implanted:06/0 03/2020 by Shen Ordonez MD (Quantity not on file) Pacemaker Chest Medtronic Cardiac Rhythm Mgmt MANDO [id number] / [id number] / Procedures Procedure Name Priority Date/Time Associated Diagnosis Comments POCT HEMOGLOBIN A1C Routine 05/12/2025 9 :34 AM CDT Type 1 diabetes mellitus with hyperglycemia (HCC) POCT GLUCOSE 77250 Routine 05/12/2025 9: 33 AM CDT Type 1 diabetes mellitus with hyperglycemia (HCC) SCREENING MAMMOGRAM BILATERAL W BENEDICT Schedule Routine, Read Routine (OP Routine) 01/02/2025 8:55 AM CDT Screening mammogram, encounter for COMPREHENSIVE METABOLIC PANEL Routine 07/29/2024 1:28 PM SEALING AND CANCELING MACHINE OPERATOR Type 1 diabetes mellitus with hyperglycemia (HCC) Primary hypertension Mixed diabetic hyperlipidemia associated with type 1 diabetes mellitus (HCC) Insulin pump in place H/O gastric bypass LIPID PANEL Routine 07/29/2024 1:28 PM SEALING AND CANCELING MACHINE OPERATOR Type 1 diabetes mellitus with hyperglycemia (HCC) Primary hypertension Mixed diabetic hyperlipidemia associated with type 1 diabetes mellitus (HCC) Insulin pump in place H/O gastric bypass ALBUMIN CREATININE RATIO, URINE Routine 07/29/2024 1:28 PM SEALING AND CANCELING MACHINE OPERATOR Type 1 diabetes mellitus with hyperglycemia (HCC) Primary hypertension Mixed diabetic hyperlipidemia associated with type 1 diabetes mellitus (HCC) Insulin pump in place H/O gastric bypass THYROID FUNCTION CASCADE Routine 07/29/2024 1:28 PM SEALING AND CANCELING MACHINE OPERATOR Type 1 diabetes mellitus with hyperglycemia (HCC) Primary hypertension Mixed diabetic hyperlipidemia associated with type 1 diabetes mellitus (HCC) Insulin pump in place H/O gastric bypass COLONOSCOPY 02/07/2024 9:19 AM CDT DEXA AXIAL SKELETON BONE DENSITY 1 OR MORE SITES Schedule Routine, Read Routine (OP Routine) 07/27/2022 10:09 AM SEALING AND CANCELING MACHINE OPERATOR Screening for osteoporosis DIABETIC EYE EXAM Routine 05/03/2020 DIABETES FOOT EXAM Routine 01/30/2017 from Last 3 Months or Most Recently Relevant to Health Maintenance Results * (ABNORMAL) POCT hemoglobin A1c (05/12/2025 9:34 AM CDT) Hemoglobin A1C, POC 7.4(A) 4.0 - 5.6 % Blood 05/12/2025 9:34 AM CDT Lucianamarisol Jolley [facility] POINT OF CARE TEST ORDERABLES Final Result * POCT glucose (05/12/2025 9:33 AM CDT) Glucose Blood, POC 110 Normal Fasting 70 - 100, Random <200 mg/dL Blood 05/12/2025 9:33 AM CDT Luciana Jolley [facility] POINT OF CARE TEST ORDERABLES Final [...] PROCEDURES Fi nal Result * Thyroid Function Portal (07/29/2024 1:28 PM SEALING AND CANCELING MACHINE OPERATOR) TSH 1.26 0.40 - 4.50 mIU/L [facility] Comment: Your request to have a duplicate copy faxed has been acknowledged. Queued to: [id number] Blood 07/29/2024 1:28 PM SEALING AND CANCELING MACHINE OPERATOR 07/29/2024 1:28 PM SEALING AND CANCELING MACHINE OPERATOR Narrative [facility] - 07/30/2024 5:24 AM SEALING AND CANCELING MACHINE OPERATOR FASTING:YES FASTING: YES Andie Dorantes MD LAB BLOOD ORDERABLES Final Result Performing Organization Address City/[facility]/ZIP Co de Phone Number [facility] [address] [place] [address] * Albumin Creatinine Ratio, Urine (07/29/2024 1:28 PM SEALING AND CANCELING MACHINE OPERATOR) Pathologist [facility] Creatinine, ur 47 20 - 275 mg/dL [...] a diagnostic category. Urine 07/29/2024 1:28 PM SEALING AND CANCELING MACHINE OPERATOR 07/29/2024 1:28 PM SEALING AND CANCELING MACHINE OPERATOR Narrative [facility] - 07/30/2024 5:24 AM SEALING AND CANCELING MACHINE OPERATOR FASTING:YES FASTING: YES Andie Dorantes MD LAB URINE ORDERABLES Final Result Performing Organization Address [facility] Co de Phone Number [facility] [place] [address] [address] [facility] [place] [address] * Lipid panel (07/29/2024 1:28 PM SEALING AND CANCELING MACHINE OPERATOR) Pathologist [facility] Cholesterol 157 <200 mg/dL [facility] [...] LDL-C. Juni LAFLEUR et al. JOHNNY. 2013;310(19): 0897-6388 (http://education.Onehub/faq/QHR059) Chol/HDL ratio 2.0 <5.0 (calc) [facility] Non-HDL, (LDL+VLDL) 79 <130 mg/dL (calc) [facility] Comment: For patients with diabetes plus 1 major ASCVD risk factor, treating to a non-HDL-C goal of <100 mg/dL (LDL-C of <70 mg/dL) is considered a therapeutic option. Blood 07/29/2024 1:28 PM SEALING AND CANCELING MACHINE OPERATOR 07/29/2024 1:28 PM SEALING AND CANCELING MACHINE OPERATOR Narrative [facility] - 07/30/2024 5:24 AM SEALING AND CANCELING MACHINE OPERATOR FASTING:YES FASTING: YES us Andie Dorantes MD LAB BLOOD ORDERABLES Final Result [facility] [address] [place] [address] * (ABNORMAL) Comprehensive metabolic panel (07/29/2024 1:28 PM SEALING AND CANCELING MACHINE OPERATOR) Pathologist [facility] Glucose 108(H) 65 - 99 mg/dL [facility] [...] [facility] Blood 07/29/2024 1:28 PM SEALING AND CANCELING MACHINE OPERATOR 07/29/2024 1:28 PM SEALING AND CANCELING MACHINE OPERATOR Narrative [facility] - 07/30/2024 5:24 AM SEALING AND CANCELING MACHINE OPERATOR FASTING:YES FASTING: YES us Andie Dorantes MD LAB BLOOD ORDERABLES Final Result [facility] [address] [address] * Colonoscopy (02/07/2024 9:19 AM CDT) Anatomical Region Laterality Modality Other Narrative Procedure Note Andrey Arango MD - 02/07/2024 9:19 AM CDT ENDOSCOPY LAB Patient Name: Keerthi Aguilar Procedure Date: 02/07/2024 9:19 AM Date of : 1955 Admit Type: Outpatient Age: 68 Gender: Female Attending MD: Melly Arango M.D. Room: [facility] ENDOSCOPY ROOM 03 Note Status: Finalized [...] The scope was passed under direct vision.The [id number] was introduced through the anusand advanced to [...] 1 or 2 Site (07/27/2022 10:09 AM SEALING AND CANCELING MACHINE OPERATOR) Anatomical Region Laterality Modality Body N/A Other 07/27/2022 8:33 PM SEALING AND CANCELING MACHINE OPERATOR Narrative 07/27/2022 8:34 PM SEALING AND CANCELING MACHINE OPERATOR EXAM DESCRIPTION: DEXA AXIAL SKELETON BONE DENSITY 1 OR MORE SITES REASON FOR STUDY: 66 y/o year old F with given history of screening. Postmenopausal Lone Lead Lineman/Model: [employer] (S/N [id number]) CLINICAL INFORMATION: Current height: 66.5 inches Maximum [...] Danilo Winston M.D. MF: OSMIN Report ID: [id number] Reading Location: [id number] Procedure Note Danilo Winston MD - 07/27/2022 EXAM DESCRIPTION: DEXA AXIAL SKELETON BONE DENSITY 1 OR MORE SITES REASON FOR STUDY: 66 y/o year old F with given history ofscreening. Postmenopausal Lone Lead Lineman/Model: [employer] (S/N 37573) CLINICAL INFORMATION: Current height: 66.5 inches Maximum [...] signed by Danilo SOLORIO: OSMIN Report ID: [id number] Reading Location: [place] [address] Louise Wu NP IMG DXA PROCEDURES Final Result * Diabetic Eye Exam (05/03/2020) us Historical Provider HEALTH MAINTENANCE Final Result * DIABETES FOOT EXAM (01/30/2017) Diabetic Foot Exam Normal Comment:Dryness noted b/l Historical Provider HEALTH MAINTENANCE Final Result from Last 3 Months or Most Recently Relevant to Health Maintenance Insurance [employer] [facility] [id number] [facility] Advance Directives For more information, please contact: [phone] * Full Code (Latest Code Status on File) Date Activated Date Inactivated Comments 02/07/2024 7:40 AM 02/07/2024 2:39 PM * Full Code Date Activated Date Inactivated Comments 12/26/2018 7:10 AM 12/26/2018 1:49 PM Care Teams Help Desk Specialist Relationship Specialty Start Date End Date Bry Denny MD PCP - General 10/26/17 Cherri Boston NP [address] [place] [address] [place] [address] Nurse Practitioner Obstetrics and Gynecology 10/25/23
--- OUTSIDE RECORDS SUMMARY | 2025-07-02 02:19 | XMS_ITS | Clinical Summary ---
Author Organization [facility] Address [address] [place] [address] Care Team Providers Care Diamond Polisher Name Role Phone Bry Denny MD Primary Care Provider [phone] Source Comments [facility],non-owned Affiliates and Associated Physician Practices is amultiple site organization consisting of ambulatory clinics and hospital sitesin [place], [place], [place] and [place]. This disclosure is being madepursuant to the Care Everywhere program and may not contain all information available regarding this patient. Last updated 18.[facility] [employer] Allergies Active Allergy Reactions Criticality Noted Date [...] Encounters Date Type Department Care Team Description 06/24/2025 8:14 AM MANAGER ENVIRONMENTAL HEALTH - 06/24/2025 11:59 PM [facility] Hospital Encounter Infusion Services at [address] [address] Harjinder Reece MD Discharge Disposition: Home or Self Care 05/13/2025 8:25 AM CDT - 05/13/2025 11:59 PM CDT Hospital Encounter Infusion Services at [address] [address] Harjinder Reece MD Discharge Disposition: Home or Self Care 04/01/2025 8:29 AM CDT - 04/01/2025 11:59 PM CDT Hospital Encounter Infusion Services at [address] [address] Harjinder Reece MD Discharge Disposition: Home or Self Care from Last 3 Months Social History Tobacco Use Types Packs/Day Years Used Date Smoking Tobacco: Former Cigarettes 0 Q uit: 06/13/1970 Smokeless Tobacco: Never Tobacco Cessation:Counseling Given: Not Answered Alcohol Use Standard Drinks/Week Comments Yes 0 (1 standard drink = 0.6 oz pur e alcohol) very rarely PHQ-2 Answer Date Recorded Patient Health Questionnaire-2 Score 1 05/13/2025 Comments No Sex and Gender Information Value Date Recorded Sex Assigned at Not on file Legal Sex Female 11:57 AM MANAGER ENVIRONMENTAL HEALTH Gender Identity Not on file Sexual Orientation Not on file Last Filed Vital Signs Vital Sign Reading Time Taken Comments Blood Pressure 109/63 06/24/2025 10:19 AM MANAGER ENVIRONMENTAL HEALTH Pulse 60 06/24/2025 10:19 AM MANAGER ENVIRONMENTAL HEALTH Temperature 36.3 C (97.3 F) 06/24/2025 10:19 AM MANAGER ENVIRONMENTAL HEALTH Respiratory Rate 16 06/24/2025 10:19 AM MANAGER ENVIRONMENTAL HEALTH Oxygen Saturation 97% 05/13/2025 11:00 AM CDT Inhaled Oxygen Concentration - - Weight 83.3 kg (183 lb 9.6 oz) 06/24/2025 8:29 A M MANAGER ENVIRONMENTAL HEALTH Height 168.9 cm (5' 6.5) 02/23/2025 10:29 AM CD T Body Mass Index 29.19 02/23/2025 10:29 AM CDT Plan of Treatment Upcoming Encounters Date Type Department Care Team (Late st Contact Info) Description 08/05/2025 8:30 AM MANAGER ENVIRONMENTAL HEALTH Appointment Infusion Services at [address] [address] 08/25/2025 10:00 AM MANAGER ENVIRONMENTAL HEALTH Office Visit [facility] [address] [facility] [address] [place] [address] [place] [address] [facility] [address] [place] [id number] Health Maintenance Due Date Last Done Comments COLOGUARD (AGES 45-75) - COLON CA SCREENING 1955 CT COLONOGRAPHY - COLON CA SCREENING 1955 FIT - COLON CA SCREENING 1955 FLEX SIG - COLON CA SCREENING 1955 LIPID TESTING 1955 HEPATITIS C SCREENING 11/21/1975 DTAP/TDAP/TD VACCINES (1 - Tdap) 1976 PNEUMOCOCCAL VACCINE 50+ (1 of 1 - PCV) 11/26/2007 ZOSTER VACCINE (1 of 2) 11/26/2007 MEDICARE AWV CALENDAR YEAR 2024 COVID-19 VACCINE (3 - season) 2025 09/11/2020, 08/21/2020 INFLUENZA VACCINE (#1) 2025 , 05/22/2018, 05/24/2016, Additional history exists MAMMOGRAM 01/02/2027 01/02/2025, 12/18, 10/25/2023, Additional history exists SCREENING FOR DIABETES 04/27/2028 , 07/24/2023, 12/07/2021, Additional history exists Respiratory Syncytial Virus (RSV) [...] - 04/28/2025 9:11 AM CDT Performed at: [address] [place] [id number] Wood Bucker: Stephen Nickerson PhD, Phone: [phone] Harjinder Reece MD LAB - CHEMISTRY ORDERABLES Final Result Performing Organization Address City/State/[facility] Co de Phone Number [facility] INSURANCE BILL [address] [place] [address] from Last 3 Months Insurance [employer] MEDIC[place] [facility] [place] Address: [facility] [id number] [place] [address] * Guarantor: LORENZA MUNOZ Account Type Relation to Patient Date of Phone Billing Address Personal/Family 1955 [address] [place] [address] [employer] Advance Directives * Full Code (Latest Code Status on File) Date Activated Date Inactivated Comments 08/28/2019 12:32 PM 08/29/2019 12:13 PM Care Teams Diamond Polisher Relationship Specialty Start Date End Date Bry Denny MD [address] [place] [phone] PCP - General Family Medicine 11/20/17
[2025-07-02] MEDS: ACETAMINOPHEN 500 MG TABLET 1000 MG PO (06:23)
[2025-07-02] MEDS: LACTATED RINGERS 1,000 ML 30 ML IV CONT ×3 (06:30→10:57)
[2025-07-02] MEDS: TRANEXAMIC ACID 1,000MG/ISO100 1,000 MG/100 ML BAG 200 MG IVPB (06:35)
--- NOTE | 2025-07-02 07:18 | WPDHPUPDATE1 ---
History and Physical Update Update Date/Time: 07/02/25 07:18 History and Physical has been reviewed, including an updated exam of the patient. There are NO changes in the patient's condition. Risks, benefits, and alternatives have been discussed and questions answered. Patient agrees to proceed with procedure.
--- NOTE | 2025-07-02 07:26 | WPDANESEPPF ---
Anes - Initial Pre Proc Eval Procedure: Operation Date: 07/02/25 07:30 Proposed Procedures p Right Total Knee Arthroplasty - Rudolph Munoz MD Date/Time: 07/02/25 07:26 Surgeon: Rudolph Munoz MD Pre Op Diagnosis: primary oa right knee Patient Data Age: 69 Gender: F Height: 1.66 m Weight: 82.4 kg Last Vital Signs Temp 36.5 C 07/02/25 06:05 Pulse 62 07/02/25 06:05 Resp 18 07/02/25 06:05 BP 129/69 07/02/25 06:05 Pulse Ox 99 07/02/25 06:05 O2 Del Method Room Air 07/02/25 06:05 Allergies Allergy/AdvReac Type Severity Reaction Status Date / Time Sulfa (Sulfonamide Allergy Unknown Rash Verified 07/02/25 06:48 Antibiotics) NSAIDS (Non-Steroidal AdvReac Unknown AVOIDING Verified 07/02/25 06:48 Anti-Inflamma AFTER GASTRIC BYPASS simvastatin AdvReac Unknown LEG PAINS Verified 07/02/25 06:48 Home Medications ?Medication ?Instructions ?Recorded ?Confirmed ?Type insulin admin supplies (InPen (for #1 ea 12/10/20 07/02/25 History Novolog or Fiasp) subcutaneous) multivitamin 1 tablet PO DAILY 12/10/20 07/02/25 History aspirin 81 mg tablet,delayed 81 mg PO DAILY 12/23/20 07/02/25 History release udiuwewqkm-izympmwenryae-opnaqxkg 1 tablet PO Q4-5H PRN Headache 12/23/20 06/05/25 History 50 mg-325 mg-40 mg tablet cholecalciferol (vitamin D3) 25 3,000 mcg PO DAILY 12/23/20 07/02/25 History mcg (1,000 unit) capsule hydrochlorothiazide 25 mg tablet 25 mg PO QAM 12/01/21 07/02/25 History insulin aspart U-100 100 unit/mL 40 - 60 unit continuous IV 12/01/21 07/02/25 History subcutaneous solution (Novolog infusion USEASDIRECTD U-100 Insulin aspart) acetaminophen 500 mg tablet 1,000 mg PO Q6H PRN Pain 11/30/22 06/05/25 History (Tylenol Extra Strength) ezetimibe 10 mg tablet (Zetia) 10 mg PO DAILY 11/30/22 07/02/25 History sennosides 8.6 mg-docusate sodium 1 - 2 tab-cap PO QAM 11/30/22 07/02/25 History 50 mg tablet (Senna-S) lisinopril 2.5 mg tablet 2.5 mg PO DAILY PRN Hypertension 04/02/24 06/05/25 History calcium carbonate (Tums Extra 750 mg PO QAM 05/30/24 07/02/25 History Strength Smoothies) lisinopril 5 mg tablet 5 mg PO QAM 05/30/24 07/02/25 History cyanocobalamin (vitamin B-12) 500 mcg PO DAILY 06/05/25 07/02/25 History 1,000 mcg capsule furosemide 40 mg tablet (Lasix) 20 mg PO QAM 06/05/25 07/02/25 History psyllium husk 0.4 gram capsule 0.4 g PO DAILY 06/05/25 07/02/25 History (Metamucil) pyridostigmine bromide 60 mg 60 mg PO DAILY 06/05/25 07/02/25 History tablet (Mestinon) semaglutide (weight loss) 1 mg/0.5 1 mg subcut WEEKLY 06/05/25 07/02/25 History mL subcutaneous pen injector (Wegovy) aspirin 81 mg tablet,delayed 81 mg PO BID 14 days #28 tabs 07/02/25 Rx release oxycodone-acetaminophen 5 mg-325 1 - 2 tablet PO Q4-6H PRN pain #30 07/02/25 Rx mg tablet tabs prednisone 5 mg tablet 5 mg PO DAILY 3 weeks #21 tabs 07/02/25 Rx Laboratory Tests 07/02/25 07/02/25 06:35 06:41 POC Capillary Glucose 150 H mg/dl (65-105) Blood Type O Positive Antibody Screen Negative Patient hx anesthesia problems: none Family hx anesthesia problems: none Results Review: All pre-operative results and documents have been reviewed as part of the pre-operative evaluation. [facility] Past Medical History Medical History Myasthenia gravis Diabetes insulin pump Hypertension History of pacemaker Surgical History Surgical History History of total left knee replacement (~06/17/24) History of thymectomy History of cholecystectomy History of bilateral cataract extraction History of bilateral carpal tunnel release History of appendectomy History of cardiac cath X3 History of hysterectomy History of hip surgery Labral repair Rt Hip History of meniscectomy of right knee History of gastric bypass 2015 Family History Family History Father Hypertension Diabetes mellitus Mother Thyroid disease Sinus complaint Social History Social History Smoking packs per day: 0.75 Smoking cigarettes per day: 15.0 Years smoked: 2.5 Smoking pack-years: 1.88 Smoking status: Former smoker Tobacco type: cigarettes Smoking end date: 02/17/78 Additional smoking assessment comments: DENIES ANY FORM OF TOBACCO USE Alcohol intake: never Substance use: never Lack of Transportation: No Lack of Food: Never True Current Housing: I Have Housing Concerned About Future Housing: No Difficulty Paying Gas/Electric Bills: No Difficulty Paying for Meds: No Currently Unemployed: No Education: Associate Degree Difficulty w/ Childcare or Family Care: No Living arrangements: with family Additional living arrangements comments: HUSB & GRANDDAUGHTER Spiritual care concerns: No Anes - Eval Final PreProcedure Day of Procedure 07/02/25 07:26 Patient weight: overweight Heart: regular rate and rhythm Lungs: clear to auscultation Airway: Mallampati scale class II Neurological: alert and oriented Last oral intake: >/= 8 hours ASA classification: III Emergent: no Anesthetic plan: proceed Anesthesia type and monitoring: general LMA and standard monitoring Results Review: All pre-operative results and documents have been reviewed as part of the pre-operative evaluation. Informed Consent: The patient's anesthetic plan and its attendant risks and benefits were discussed with the patient/family/POA. Questions were solicited and answers provided to the satisfaction of the patient/family/POA.
[2025-07-02] MEDS: ceFAZolin 2 GM in SODIUM CHLORIDE 0.9% IV 50 ML 100 ML IVPB (07:29)
[2025-07-02] MEDS: SODIUM CHLORIDE 0.9% IV 38.7 ML, MORPHINE SULFATE INJ (*CRX) 2 MG, ROPivacaine HCL 1% 2... INFILTRATE (08:11)
[2025-07-02] MEDS: TRANEXAMIC ACID 1,000 MG/10 ML AMPUL 1000 MG IV PUSH (09:45)
[2025-07-02] MEDS: fentaNYL CITRATE INJ (*CRX) 100 MCG/2 ML VIAL 25 MCG IV PUSH ×4 (10:39→10:58)
--- NOTE | 2025-07-02 10:49 | P.OP_ITS ---
Procedure Note - Detailed Date of Procedure 07/02/25 Pre-op Diagnosis Right knee degenerative arthritis. Post-op Diagnosis Same Procedure Performed Calipered, kinematically aligned total knee replacement right knee. 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 Rosaura Guevara PA-C Anesthesia General Findings According to the calipered kinematic alignment principles, the knee was balanced by the following verification checks incorporating 6 caliper measurements, using an insert goniometer to select the insert thickness, and adjusting the tibial resection following the kinematic alignment algorithm (see figure 160.10 published in [employer] chapter on kinematic alignment total knee arthroplasty.) The steps verified the femoral and tibial components were kinematically aligned coincident to the patient's pre arthritic joint lines, which closely restored the lower sioux tibial compartment forces and ligament laxities without ligament release. The [employer] AgoriqueriKA knee, designed specifically for kinematic alignment, fit optimally. Grade 4 lateral knee disease confirmed. Moderate lateral tibia erosion. No soft tissue contracture and no releases required. The record of verification checks were documented and scanned into the chart. Distal Femoral Resection: Distal Lateral 6 mm(cartilage worn), Distal Medial 8 mm Target thickness of 8mm Unworn, 6mm Worn (No Cartilage). Posterior Femoral Resection: Posterior Lateral 5 mm(cartilage worn), Posterior Medial 7 mm. Target thickness of 7mm Unworn, 5mm Worn (No Cartilage). Description of Procedure General anesthesia was administered. A well-padded tourniquet was placed high on the thigh. The limb was prepped and draped in the usual sterile fashion. The limb was exsanguinated and the tourniquet inflated to 300 mmHgduring exposure and cementation. A longitudinal incision was created over the midline of the knee. Sharp dissection was taken through subcutaneous tissues. Electrocautery was used for hemostasis. A subvastus approach to the knee joint was performed. The ACL, anterior horns of the menisci, and fat pad were excised, and a subperiosteal dissection was carried along the posterior medial border of the tibia. Starting midway between the top of the notch in the anterior femoral cortex, I drilled a 9 mm diameter hole parallel to the anterior cortex to minimize flexion of the femoral component and promote patella tracking. I verified the existence of a 5-10 mm bone bridge between the posterior aspect of the hole and the anterior limit of the intercondylar notch. An intraosseous positioning robyn was inserted 10 cm into the femur perpendicular to the distal joint line and parallel to the anterior cortex. I used a distal femoral referencing guide that compensated 2 mm when the cartilage was worn on the distal medial femoral condyle, and 2 mm when the cartilage was worn on the distal lateral femoral condyle. The basis for setting the distal and posterior femoral resection guide is knowing that the varus and valgus grade II to IV Kellegren-Nick osteoarthritic knees have negligible bone wear at 0? and 90? and that the mean full-thickness cartilage wear approximates 2 mm. I measured the thickness of distal femoral resections with a caliper to +/- 0.5 mm. The thickness of each resection was adjusted to match the thickness of the respective condyle of the femoral component within 0.5 mm of target after compensating for cartilage wear and kerf. When the distal resection was 1-2 mm too thin, a recut guide was used to adjust the cut. When the distal resection was too thick, a 1 or 2 mm thick washer was fixed to the back of the 4-in-1 chamfer block to sotero a corrective gap between the femoral component and distal femur. I set posterior femoral referencing guide at 0? orientation to position the pin holes for the 4 in 1 chamfer block. The alesha wing measured the width of the distal femoral resection and selected the size of the 4 in 1 chamfer block and femoral component. The AP sizer confirmed the size. I measured the thickness of the posterior femoral resections with a caliper before making the anterior and chamfer cuts. I adjusted the thicknesses of each resection to match the thickness of the respective condyle of the femoral component within +/-0.5 mm after compensating for cartilage wear and curve. When a posterior resection femoral resection was 1-2 mm too thick or thin a corrective correction was made by shifting or rotating the 4 in 1 chamfer block as needed. The chamfer block was secured in the correct position with compression screws. The anterior and chamfer femoral resections were made. These caliper measurements and corrections verified that the femoral component was set coincident with the patient's pre-arthritic distal and posterior femoral joint lines. I removed all the medial and lateral femoral and tibial osteophytes to restore the pre arthritic length of the medial and lateral collateral ligaments. I alfreda AP lines along the major axis of the lateral tibial plateau in between the tibial spines which identified the flexion extension plane of the knee. A conventional extramedullary tibial resection guide was applied to the ankle. An alesha wing was placed medially in the saw slot. The varus valgus angle of the tibial resection guide was adjusted until the guide paralleled the proximal tibial articular surface after compensating for cartilage and bone wear. The slope of flexion extension angle of the tibial resection guide was adjusted until the alesha wing paralleled the slope of the medial tibia after compensating for wear. The AP axis of the tibial resection guide was adjusted parallel to the two lines. The proximal tibia was resected, partially releasing the insertion of the posterior cruciate ligament. The thickness of the medial and lateral lateral tibial condyle was measured at the base of the tibial spines. I visually verified the slope of the medial border of the resection was parallel to the patient's pre arthritic slope after compensating for cartilage and bone wear. I removed the remnants of the posterior horns of the menisci and posterior osteophytes and cauterized the inferior lateral genicular vessels. The Aquamantys bipolar device was also used to for additional hemostasis. When the knee had a preoperative flexion contracture of 20? or more I teased the capsule off the posterior femur with a curved 3 quarter-inch osteotome. I administered the posterior femoral periosteal injection by delivering 10 cc using a 20 gauge spinal needle at the most medial and 10 cc at the most lateral femoral spur surface which reduced the risk of injury to the posterior neurovascular structures. I followed 6 options in a decision tree to fine tune the varus valgus and posterior slope orientation of the tibial component to restore the patient's pre arthritic tibial joint line and limb alignment. First, I adjusted the varus- valgus orientation of the proximal tibia resection working in 1 degree to 2 degree increments until there was negligible medial and lateral lift off of the distal femoral and proximal tibial resection from the spacer block during a varus valgus laxity assessment in extension. I selected the largest anatomic shape trial tibial base plate that fit within the cortical boundary of the proximal tibial resection. The base plate was best fit parallel to the cortical boundary which set the Internal-external robbi entation of the anterior to posterior and medial to lateral positions. The best fit method set the AP axis of the tibial base plate and insert parallel to the flexion extension plane of the pre arthritic knee. I pinned the trial tibial base plate, prepared the cruciate slot, and fixed the base plate to the tibia with the cruciate stem. I inserted the trial femoral component. The knee was placed in full extension. Varus valgus laxity is of the knee with trial components were assessed. When asymmetric laxity was observed a 1-2 degree varus or valgus recut guide was used to fine tune the tibial resection until the laxity was 1 degree or less in full extension like the lower sioux knee. The following steps determined the optimal insert thickness within +/-1 mm. First I inserted an insert goniometer that matched the thickness of the spacer block. I reduced the patella and then with the knee in maximum extension, I verified the knee hyperextended a few degrees and had negligible varus valgus laxity, like the pre arthritic knee. Next, I measured the external tibial orientation which was the angle the insert goniometer intersected the sagittal line on the medial condyle of the femoral trial component. Then with the knee in 15-30 degrees flexion I verified a 3-4 mm gap in the lateral compartment and no gap in the medial compartment during a 2nd varus valgus laxity test. Next, I placed the knee in 90? of flexion and the foot resting on the operating table and measured the internal tibial orientation. I repeated the steps until I identified the insert thickness that provided the highest external tibia orientation in extension and the highest internal tibial orientation at 90? flexion without anterior lift-off of the insert from the tibial base plate. The insert with this thickness was implanted. I applied a posterior drawer test with the tibia distracted by gravity and verified no posterior subluxation of the tibia relative to the femur. The thickness of the lower sioux patella was measured with a caliper. The patella was resected using the oscillating saw. The best fitting anatomic patella button was selected. The fixation holes were drilled. When the patella and patella buttons combined thickness was thicker than the lower sioux patella, the patella was recut. The patella remained centered on the trochlea and tracked well throughout the entire arc of flexion and extension. I used pulse lavage to clean the bony surfaces of debris and dried bone. I cemented the tibial, femoral, and patellar components using 1 bag of methylmethacrylate with Gentamycin, then rechecked the stability at full extension, 15-30 degrees, and 90? flexion and verified oriental orthodox of the entire arc of motion of the knee. The circulating nurse confirmed the sponge and needle counts were correct. I used pulse lavage to rinse the joint and wound. The extensor mechanism was closed with interrupted #1 Vicryl suture and #1 running Stratafix suture. The subcutaneous layer was closed with interrupted #1 Vicryl suture followed by 2-0 Stratafix and 3-0 Stratafix. Steri-Strips placed on the skin. Silver impregnated occlusive dressing applied to the wound. A light gauze wrap and Michael bandage were placed. The patient was transferred to the recovery room in stable condition. There were no complications. Implants Medacta K spheriKA Femoral component SpheriKA size 3, tibial component size 3, vitamin-E flex insert, thickness 14mm, Anatomic patella implant size 2. Estimated Blood Loss 50 Drains No Pathology None sent Complications No immediate complications Condition Stable Disposition PACU [facility] Billing Surgery - Charge Forward: Surgery Billing
[2025-07-02] MEDS: oxyCODONE HCL (*CRX) 5 MG TAB IR PO (11:44)
[2025-07-02] MEDS: ONDANSETRON INJ 4 MG/2 ML VIAL IV PUSH (11:59)
--- NOTE | 2025-07-02 12:15 | SUR.PHASEII ---
PATIENT OFFERED MEAL TRAY BY THIS RN AT THIS TIME. PATIENT DECLINED AND STATED SHE IS SATISFIED WITH HER CRACKERS FOR NOW AND WOULD RATHER EAT AT HOME LATER.
--- NOTE | 2025-07-02 12:18 | SUR.PHASEII ---
PER PT AND OT PATIENT IS STABLE FOR D/C.
--- NOTE | 2025-07-02 12:19 | SUR.PHASEII ---
PATIENT AND SPOUSE GIVEN INSTRUCTION ON INCENTIVE SPIROMETER. PATIENT VERBALIZED UNDERSTANDING AND DEMONSTRATED PROPER USE. NO QUESTIONS REGARDING INCENTIVE SPIROMETER AT THIS TIME.
== END 2025-07-02 12:48 | disposition home or self-care (01) ==
PROVIDERS: Visit Provider Orthopaedic Surgery
PROC: (CPT 27447; principal; 2025-07-02 07:30)
DX: M17.11 Unilateral primary osteoarthritis, right knee (principal); M25.761 Osteophyte, right knee; M65.861 Other synovitis and tenosynovitis, right lower leg; E11.9 Type 2 diabetes mellitus without complications; I10 Essential (primary) hypertension; G70.00 Myasthenia gravis without (acute) exacerbation; Z79.4 Long term (current) use of insulin; Z79.82 Long term (current) use of aspirin; Z79.891 Long term (current) use of opiate analgesic; Z79.52 Long term (current) use of systemic steroids; Z79.85 Long-term (current) use of injectable non-insulin antidiabetic drugs; Z96.41 Presence of insulin pump (external) (internal); Z95.0 Presence of cardiac pacemaker; Z98.890 Other specified postprocedural states; Z90.49 Acquired absence of other specified parts of digestive tract; Z98.61 Coronary angioplasty status; Z98.84 Bariatric surgery status; Z87.891 Personal history of nicotine dependence
CPT/HCPCS: 27447; 36415; 73560; 82948; 86850; 86900; 86901; 97110; 97161; 97165; C1776; J0690; A9270; C1713; J0166; J1100; J1171; J2003; J2270; J2405; J2704; J2795; J3010; J3290; J7120